=== PATIENT | female | born 1940 | race Caucasian/White ===

== ENCOUNTER 2016-07-22 11:21 | Emergency (ER) | payer MEDICARE, OTHER ==
--- NOTE | 2016-07-22 12:21 | EDM.PDOC ---
ED HPI GI/ABDOMINAL - General Chief Complaint: Abdominal Pain Stated Complaint: BACK AND ABD PAIN Time Seen by Provider: 07/22/16 12:08 Source: Reports: Patient, Family, RN notes reviewed History Limitations: Reports: No limitations - History of Present Illness INITIAL COMMENTS - FREE TEXT/NARRATIVE: 76-year-old female presents emergency department today with complaint of pain wrapping around the right side of her thorax with epigastric discomfort she states had that for about 3 days no other symptoms - Related Data Allergies/ADRs: Allergies Allergy/AdvReac Type Severity Reaction Status Date / Time amoxicillin [Amoxicillin] Allergy Hives Verified 07/22/16 11:57 ciprofloxacin AdvReac Other Verified 07/22/16 11:57 lisinopril AdvReac Nausea Verified 07/22/16 11:57 Home Meds: Home Meds Metoprolol Tartrate 50 mg PO BID 05/20/15 [History] Diltiazem [Dilacor XR] 120 mg PO BID 07/22/16 [History] Warfarin [Coumadin] 5 mg PO ASDIRECTED 07/22/16 [History] Past Medical History HEENT History: Reports: Cataract, Impaired vision Cardiovascular History: Reports: Afib, High cholesterol, Hypertension Gastrointestinal History: Reports: Pancreatitis 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: Musculoskeletal History: Reports: Arthritis Neurological History: Reports: CVA, Migraines Hematologic History: Reports: Anticoagulation therapy Oncologic (Cancer) History: Reports: Other (see below) Other Oncologic History: skin Dermatologic History: Reports: Other (see below) 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 - Infectious Disease History Infectious Disease History: Reports: C-difficile, Measles, Mumps, Shingles - Past Surgical History Cardiovascular Surgical History: Reports: Carotid endarterectomy GI Surgical History: Reports: Cholecystectomy Other GI Surgeries/Procedures: colon resection Oncologic Surgical History: Reports: Other (see below) Other Oncologic Surgeries/Procedures: resection on lip Social & Family History - Family History Family Medical History: Noncontributory Cardiac: Reports: CAD, Hypertension - Tobacco Use Smoking Status *Q: Former Smoker Years of Tobacco use: 50 Packs/Tins Daily: 0.5 Used Tobacco, but Quit: Yes Month Tobacco Last Used: 8 years ago Second Hand Smoke Exposure: No - Caffeine Use Caffeine Use: Reports: Coffee Caffeine Use Comment: occ - Alcohol Use Days Per Week of Alcohol Use: 0 - Recreational Drug Use Recreational Drug Use: No - Living Situation & Occupation Living situation: Reports: , with spouse ED ROS GENERAL - Review of Systems Review Of Systems: See Below Constitutional: Reports: no symptoms HEENT: Reports: No symptoms Respiratory: Reports: No Symptoms Cardiovascular: Reports: Chest pain GI/Abdominal: Reports: Abdominal pain. Denies: Nausea, Vomiting : Reports: no symptoms Musculoskeletal: Reports: no symptoms Skin: Reports: no symptoms ED EXAM, GI/ABD - Physical Exam Exam: See Below Text/Narrative:: General: Female, not in any distress, alert and oriented x3 HEENT: head is atraumatic normocephalic, eyes pupils equal round reactive to light, sclera clear no conjunctivitis appreciated. Ears tympanic membranes clear and hernandez landmarks and light reflex are present bilaterally canals are clear. Nose no septal deviation, nares are clear, no blood present. Mouth mucosa is moist and pink no erythema or exudate noted in soft palate, tongue is midline uvula is midline, Neck: Supple no thyromegaly no tracheal deviation. Nodes: Cervical nodes subclavicular nodes nontender no palpable lymphadenopathy noted. Lungs: clear to auscultation bilaterally with symmetrical respirations, no adventitious noise appreciated. CV: Irregularly irregular rate and rhythm S1 and S2 appreciated no murmurs rubs or gallops noted. Thorax she is tender to palpation along the right side back and flank T4 to TH region there is also an erythematous patch that encompasses a dermatome about T6 Abdomen: Soft, nontender, no palpable masses or organomegaly appreciated, no distention no guarding bowel sounds are present, . Neuro: Cranial nerves II through XII grossly intact Skin: Warm and dry, intact Extremities: No lower extremity edema appreciated. Course - Vital Signs Last Recorded V/S: Last Vital Signs Temp 96.5 F 07/22/16 11:49 Pulse 74 07/22/16 14:24 Resp 18 07/22/16 14:24 BP 163/80 H 07/22/16 14:24 Pulse Ox 95 07/22/16 14:24 - Orders/Labs/Meds Orders: Active Orders 24 hr Category Date Time Status Chest 2V [CR] Urgent Exams 07/22/16 13:02 Taken Labs: Laboratory Tests 07/22/16 07/22/16 07/22/16 Range/Units 12:19 12:25 12:25 WBC 12.0 H (4.5-11.0) K/uL RBC 5.08 (3.30-5.50) M/uL Hgb 14.6 D (12.0-15.0) g/dL Hct 43.6 (36.0-48.0) % MCV 86 (80-98) fL MCH 29 (27-31) pg MCHC 34 (32-36) % Plt Count 299 (150-400) K/uL Neut % (Auto) 78 H (36-66) % Lymph % (Auto) 13 L (24-44) % [place] % (Auto) 7 H (2-6) % Eos % (Auto) 1 L (2-4) % Baso % (Auto) 1 (0-1) % Sodium 136 L (140-148) mmol/L Potassium 4.7 (3.6-5.2) mmol/L Chloride 99 L (100-108) mmol/L Carbon Dioxide 29 (21-32) mmol/L Anion Gap 12.7 (5.0-14.0) mmol/L BUN 12 D (7-18) mg/dL Creatinine 0.7 (0.6-1.0) mg/dL Est Cr Clr Drug Dosing 48.34 mL/min Estimated GFR (MDRD) > 60 (>60) Glucose 88 (74-106) mg/dL Calcium 9.1 (8.5-10.1) mg/dL Total Bilirubin 0.4 D (0.2-1.0) mg/dL AST 19 (15-37) U/L ALT 25 (12-78) U/L Alkaline Phosphatase 99 (46-116) U/L Troponin I < 0.017 (0.000-0.056) ng/mL Total Protein 8.8 H (6.4-8.2) g/dL Albumin 3.6 (3.4-5.0) g/dL Globulin 5.2 H (2.3-3.5) g/dL Albumin/Globulin Ratio 0.7 L (1.2-2.2) Lipase 94 (73-393) U/L Meds: Medications Discontinued Medications Generic Name Dose Route Start Last Admin Trade Name Freq PRN Reason Stop Dose Admin Hydromorphone HCl 1 mg 07/22/16 13:50 04/15/17 14:21 Dilaudid IM 07/22/16 13:51 1 mg ONETIME ONE Administration Ketorolac Tromethamine 60 mg 07/22/16 13:02 07/22/16 13:11 Toradol IM 07/22/16 13:03 60 mg ONETIME ONE Administration Departure - Departure Time of Disposition: 15:04 Disposition: Home, Self-Care 01 Condition: good Clinical Impression: Chest wall pain Referrals: Stanley Hernandez MD [Primary Care Provider] - Forms: ED Department Discharge Additional Instructions: Use hydrocodone as needed for pain control, use the Flexeril as needed for muscle relaxant, Please followup with your primary care provider in 3-5 days if not better, please call return to the emergency department with worsening of symptoms. - My Orders Last 24 Hours: My Active Orders 07/22/16 13:02 Chest 2V [CR] Urgent - Assessment/Plan Last 24 Hours: My Active Orders 07/22/16 13:02 Chest 2V [CR] Urgent Plan: Assessment Acuity = acute Site and laterality = right sided rib pain chest wall pain Etiology = unclear etiology possibly related to lifting injury Manifestations = none Location of injury = home Lab values = WBC elevated at 12.0 consistent leukocytosis, sodium low 136 months hyponatremia chest x-ray I did review films myself I cannot appreciate any acute process, the official read from radiology is pending Plan She had good improvement with pain combination of Toradol and Dilaudid plan is discharge home with hydrocodone for pain control total #10 and muscle Isoflex for a followup with primary care 3-5 days Patient was in agreement with the plan all questions were answered, they were instructed to return to the emergency department or call for worsening symptoms. This note was dictated using [email or web address] voice recognition software please call with any questions.
[2016-07-22] MEDS ORDERED: Ketorolac 60 MG/2 ML SDV IM ONE (13:02)
[2016-07-22] MEDS ORDERED: HYDROmorphone 1 MG/ML Syringe IM ONE (13:50)
[2016-07-22 15:46] VITALS: BP 194/79
--- NOTE | 2016-07-24 09:28 | CR ---
Heart size within normal limits. Left lung is clear. Right lung is clear. Moderate compression defor mity of the midthoracic spine.
== END 2016-07-22 15:55 | disposition home or self-care (01) ==
LOC: JP.ED 11:21
DX: R07.89 Other chest pain (principal); I10 Essential (primary) hypertension; I48.91 Unspecified atrial fibrillation; Z79.01 Long term (current) use of anticoagulants; Z79.899 Other long term (current) drug therapy; Z90.49 Acquired absence of other specified parts of digestive tract; Z98.890 Other specified postprocedural states; Z87.891 Personal history of nicotine dependence; Z88.1 Allergy status to other antibiotic agents; Z88.8 Allergy status to other drugs, medicaments and biological substances
CPT/HCPCS: 36415; 71020; 80053; 83690; 84484; 85025; 96372; 99284; J1170; J1885

== ENCOUNTER 2017-06-27 11:26 | Inpatient (IN) | payer MEDICARE, OTHER ==
[2017-06-27] MEDS ORDERED: Sodium Chloride 0.9% 10 ML Syringe FLUSH PRN ×2 (11:58→15:53)
[2017-06-27] MEDS ORDERED: Lactated Ringers 1,000 ML IV SCH (12:00)
--- NOTE | 2017-06-27 12:02 | EDM.PDOC ---
ED HPI GENERAL MEDICAL PROBLEM - General Chief Complaint: Abdominal Pain Stated Complaint: PAIN IN UPPER STOMACH AREA Time Seen by Provider: 06/27/17 11:49 Source of Information: Reports: Patient, Family, Old Records, RN Notes Reviewed History Limitations: Reports: No Limitations - History of Present Illness INITIAL COMMENTS - FREE TEXT/NARRATIVE: 77-year-old female presents emergency department day complaint of abdominal pain epigastric region, she states it's really developed over the last 24 hours she has had nausea and vomiting no fevers no shortness of breath or chest pain with known history of atrial fibrillation and has had pancreatitis in the past she feels this is similar to past episodes Upper Abdominal Pain Score (Numeric/FACES): 4 - Related Data Allergies Allergy/AdvReac Type Severity Reaction Status Date / Time amoxicillin [Amoxicillin] Allergy Hives Verified 07/22/16 11:57 [id number] Reductase Allergy Other Verified 06/27/17 11:45 Inhibitor ciprofloxacin AdvReac Other Verified 07/22/16 11:57 lisinopril AdvReac Nausea Verified 07/22/16 11:57 Home Meds: Home Meds Metoprolol Tartrate 50 mg PO BID 05/20/15 [History] Diltiazem [Dilacor XR] 120 mg PO BID 07/22/16 [History] Warfarin [Coumadin] 5 mg PO ASDIRECTED 07/22/16 [History] *Hctz 1 tab PO DAILY 06/27/17 [History] Past Medical History HEENT History: Reports: Cataract, Impaired Vision Cardiovascular History: Reports: Afib, High Cholesterol, Hypertension Gastrointestinal History: Reports: Pancreatitis 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: Musculoskeletal History: Reports: Arthritis Neurological History: Reports: CVA, Migraines Hematologic History: Reports: Anticoagulation Therapy Oncologic (Cancer) History: Reports: Other (See Below) Other Oncologic History: skin Dermatologic History: Reports: Other (See Below) 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 - Infectious Disease History Infectious Disease History: Reports: C-Difficile, Measles, Mumps, Shingles - Past Surgical History Cardiovascular Surgical History: Reports: Carotid Endarterectomy GI Surgical History: Reports: Cholecystectomy Other GI Surgeries/Procedures: colon resection Oncologic Surgical History: Reports: Other (See Below) Social & Family History - Family History Family Medical History: Noncontributory Cardiac: Reports: CAD, Hypertension - Tobacco Use Smoking Status *Q: Unknown Ever Smoked Years of Tobacco use: 50 Packs/Tins Daily: 0.5 Used Tobacco, but Quit: Yes Month/Year Tobacco Last Used: 8 years ago Second Hand Smoke Exposure: No - Caffeine Use Caffeine Use: Reports: Coffee Caffeine Use Comment: occ - Alcohol Use Days Per Week of Alcohol Use: 0 - Recreational Drug Use Recreational Drug Use: No - Living Situation & Occupation Living situation: Reports: , with Spouse ED ROS GENERAL - Review of Systems Review Of Systems: See Below Constitutional: Denies: Fever, Chills HEENT: Reports: No Symptoms Respiratory: Reports: No Symptoms Cardiovascular: Reports: No Symptoms GI/Abdominal: Reports: Abdominal Pain, Nausea, Vomiting : Reports: No Symptoms Musculoskeletal: Reports: No Symptoms Skin: Reports: No Symptoms Neurological: Reports: No Symptoms ED EXAM, GI/ABD - Physical Exam Exam: See Below Text/Narrative:: General: Female, not in any distress, alert and oriented x3 HEENT: head is atraumatic normocephalic, eyes pupils equal round reactive to light, sclera clear no conjunctivitis appreciated. Ears tympanic membranes clear and hernandez landmarks and light reflex are present bilaterally canals are clear. Nose no septal deviation, nares are clear, no blood present. Mouth mucosa is moist and pink no erythema or exudate noted in soft palate, tongue is midline uvula is midline, dentures in place. Neck: Supple no thyromegaly no tracheal deviation. Nodes: Cervical nodes subclavicular nodes nontender no palpable lymphadenopathy noted. Lungs: clear to auscultation bilaterally with symmetrical respirations, no adventitious noise appreciated. CV: Irregularly irregular rate and rhythm S1 and S2 appreciated no murmurs rubs or gallops noted. Abdomen: Soft, generalized tenderness to palpation, no palpable masses or organomegaly appreciated, no distention positive for guarding bowel sounds are present, [scars ]. Neuro: Cranial nerves II through XII grossly intact Skin: Warm and dry, intact Extremities: No lower extremity edema appreciated, Course - Vital Signs Last Recorded V/S: Last Vital Signs Temp 97.3 F 06/27/17 11:37 Pulse 91 06/27/17 14:04 Resp 15 06/27/17 14:04 BP 108/42 L 06/27/17 14:04 Pulse Ox 93 L 06/27/17 14:04 - Orders/Labs/Meds Orders: Active Orders 24 hr Category Date Time Status EKG Documentation Completion [RC] ASDIRECTED Care 06/27/17 11:59 Active Peripheral IV Care [RC] . DIRECTED Care 06/27/17 11:58 Active Iopamidol [Isovue-300 (61%)] Med 06/27/17 12:17 Active 92 ml IV . DIRECTED PRN Lactated Ringers [Ringers, Lactated] 1,000 ml Med 06/27/17 12:00 Active IV ASDIRECTED Sodium Chloride 0.9% [Normal Saline] 71 ml Med 06/27/17 12:30 Active IV ASDIRECTED Sodium Chloride 0.9% [Saline Flush] Med 06/27/17 11:58 Active 10 ml FLUSH ASDIRECTED PRN Sodium Chloride 0.9% [Saline Flush] Med 06/27/17 12:30 Active 10 ml FLUSH ONETIME Peripheral IV Insertion Adult [OM.PC] Urgent Oth 06/27/17 11:58 Ordered EKG 12 Lead [EK] Stat Ther 06/27/17 11:59 Ordered Medication Orders Lactated Ringer's (Ringers, Lactated) 1,000 mls @ 500 mls/hr IV ASDIRECTED [facility] Last Admin: 06/27/17 12:27 Dose: 500 mls/hr Sodium Chloride (Normal Saline) 71 mls @ 3 mls/sec IV ASDIRECTED [facility] Last Admin: 06/27/17 13:01 Dose: 3 mls/sec Iopamidol (Isovue-300 (61%)) 92 ml IV . DIRECTED PRN PRN Reason: RADIOLOGY EXAM Stop: 06/28/17 12:18 Last Admin: 06/27/17 13:01 Dose: 92 ml Sodium Chloride (Saline Flush) 10 ml FLUSH ASDIRECTED PRN PRN Reason: Keep Vein Open Sodium Chloride (Saline Flush) 10 ml FLUSH ONETIME [facility] Labs: Laboratory Tests 06/27/17 06/27/17 06/27/17 Range/Units 12:11 12:11 12:11 WBC 15.1 H (4.5-11.0) K/uL RBC 5.36 (3.30-5.50) M/uL Hgb 16.3 H (12.0-15.0) g/dL Hct 47.4 (36.0-48.0) % MCV 88 (80-98) fL MCH 30 (27-31) pg MCHC 34 (32-36) % Plt Count 256 (150-400) K/uL Neut % (Auto) 83 H (36-66) % Lymph % (Auto) 10 L (24-44) % [place] % (Auto) 7 H (2-6) % Eos % (Auto) 1 L (2-4) % Baso % (Auto) 0 (0-1) % PT 22.9 H (9.5-12.0) sec INR 2.08 H (0.80-1.20) Sodium 139 L (140-148) mmol/L Potassium 3.5 L (3.6-5.2) mmol/L Chloride 99 L (100-108) mmol/L Carbon Dioxide 29 (21-32) mmol/L Anion Gap 14.5 H (5.0-14.0) mmol/L BUN 22 H D (7-18) mg/dL Creatinine 0.8 (0.6-1.0) mg/dL Est Cr Clr Drug Dosing 41.63 mL/min Estimated GFR (MDRD) > 60 (>60) Glucose 117 H (74-106) mg/dL Lactic Acid (0.4-2.0) mmol/L Calcium 9.6 (8.5-10.1) mg/dL Total Bilirubin 0.8 D (0.2-1.0) mg/dL AST 25 (15-37) U/L ALT 25 (12-78) U/L Alkaline Phosphatase 82 (46-116) U/L Troponin I < 0.017 (0.000-0.056) ng/mL Total Protein 7.8 (6.4-8.2) g/dL Albumin 3.6 (3.4-5.0) g/dL Globulin 4.2 H (2.3-3.5) g/dL Albumin/Globulin Ratio 0.9 L (1.2-2.2) Lipase 72 L (73-393) U/L Urine Color Urine Appearance Urine pH (4.5-8.0) Ur Specific [place] (1.008-1.030) Urine Protein (NEGATIVE) mg/dL Urine Glucose (UA) (NEGATIVE) mg/dL Urine Ketones (NEGATIVE) mg/dL Urine Occult Blood (NEGATIVE) Urine Nitrite (NEGATIVE) Urine Bilirubin (NEGATIVE) Urine Urobilinogen (NORMAL) mg/dL Ur Leukocyte Esterase (NEGATIVE) Urine RBC (0-5) Urine WBC (0-5) Ur Epithelial Cells Amorphous Sediment Urine Bacteria Urine Mucus 06/27/17 06/27/17 Range/Units 12:11 12:13 WBC (4.5-11.0) K/uL RBC (3.30-5.50) M/uL Hgb (12.0-15.0) g/dL Hct (36.0-48.0) % MCV (80-98) fL MCH (27-31) pg MCHC (32-36) % Plt Count (150-400) K/uL Neut % (Auto) (36-66) % Lymph % (Auto) (24-44) % [place] % (Auto) (2-6) % Eos % (Auto) (2-4) % Baso % (Auto) (0-1) % PT (9.5-12.0) sec INR (0.80-1.20) Sodium (140-148) mmol/L Potassium (3.6-5.2) mmol/L Chloride (100-108) mmol/L Carbon Dioxide (21-32) mmol/L Anion Gap (5.0-14.0) mmol/L BUN (7-18) mg/dL Creatinine (0.6-1.0) mg/dL Est Cr Clr Drug Dosing mL/min Estimated GFR (MDRD) (>60) Glucose (74-106) mg/dL Lactic Acid 1.5 (0.4-2.0) mmol/L Calcium (8.5-10.1) mg/dL Total Bilirubin (0.2-1.0) mg/dL AST (15-37) U/L ALT (12-78) U/L Alkaline Phosphatase (46-116) U/L Troponin I (0.000-0.056) ng/mL Total Protein (6.4-8.2) g/dL Albumin (3.4-5.0) g/dL Globulin (2.3-3.5) g/dL Albumin/Globulin Ratio (1.2-2.2) Lipase (73-393) U/L Urine Color [place] Urine Appearance Clear Urine pH 6.0 (4.5-8.0) Ur Specific [place] 1.020 (1.008-1.030) Urine Protein Negative (NEGATIVE) mg/dL Urine Glucose (UA) Normal (NEGATIVE) mg/dL Urine Ketones Negative (NEGATIVE) mg/dL Urine Occult Blood Moderate (NEGATIVE) Urine Nitrite Negative (NEGATIVE) Urine Bilirubin Small (NEGATIVE) Urine Urobilinogen Normal (NORMAL) mg/dL Ur Leukocyte Esterase Negative (NEGATIVE) Urine RBC 10-20 H (0-5) Urine WBC Not seen (0-5) Ur Epithelial Cells Many Amorphous Sediment Many Urine Bacteria Not seen Urine Mucus Not seen Meds: Medications Generic Name Dose Route Start Last Admin Trade Name Freq PRN Reason Stop Dose Admin Lactated Ringer's 1,000 mls @ 500 mls/hr 06/27/17 12:00 06/27/17 12:27 Ringers, Lactated IV 500 mls/hr ASDIRECTED HECTOR Administration Sodium Chloride 71 mls @ 3 mls/sec 06/27/17 12:30 06/27/17 13:01 Normal Saline IV 3 mls/sec ASDIRECTED HECTOR Administration Iopamidol 92 ml 06/27/17 12:17 06/27/17 13:01 Isovue-300 (61%) IV 06/28/17 12:18 92 ml . DIRECTED PRN Administration RADIOLOGY EXAM Sodium Chloride 10 ml 06/27/17 11:58 Saline Flush FLUSH ASDIRECTED PRN Keep Vein Open Sodium Chloride 10 ml 06/27/17 12:30 Saline Flush FLUSH ONETIME HECTOR Discontinued Medications Generic Name Dose Route Start Last Admin Trade Name Freq PRN Reason Stop Dose Admin Hydromorphone HCl 0.5 mg 06/27/17 12:18 06/27/17 12:28 Dilaudid IVPUSH 06/27/17 12:19 0.5 mg ONETIME ONE Administration Ondansetron HCl 4 mg 06/27/17 12:18 06/27/17 12:27 Zofran IVPUSH 06/27/17 12:19 4 mg ONETIME ONE Administration Departure - Departure Time of Disposition: 14:08 Disposition: Admitted As Inpatient 65 Condition: Fair Clinical Impression: Small bowel obstruction - Discharge Information Referrals: Stanley Hernandez MD [Primary Care Provider] - Forms: ED Department Discharge - My Orders Last 24 Hours: My Active Orders 06/27/17 11:58 Peripheral IV Care [RC] . DIRECTED Sodium Chloride 0.9% [Saline Flush] 10 ml FLUSH ASDIRECTED PRN Peripheral IV Insertion Adult [OM.PC] Urgent 06/27/17 11:59 EKG Documentation Completion [RC] ASDIRECTED EKG 12 Lead [EK] Stat 06/27/17 12:00 Lactated Ringers [Ringers, Lactated] 1,000 ml IV ASDIRECTED 06/27/17 12:17 Iopamidol [Isovue-300 (61%)] 92 ml IV . DIRECTED PRN 06/27/17 12:30 Sodium Chloride 0.9% [Normal Saline] 71 ml IV ASDIRECTED Sodium Chloride 0.9% [Saline Flush] 10 ml FLUSH ONETIME - Assessment/Plan Last 24 Hours: My Active Orders 06/27/17 11:58 Peripheral IV Care [RC] . DIRECTED Sodium Chloride 0.9% [Saline Flush] 10 ml FLUSH ASDIRECTED PRN Peripheral IV Insertion Adult [OM.PC] Urgent 06/27/17 11:59 EKG Documentation Completion [RC] ASDIRECTED EKG 12 Lead [EK] Stat 06/27/17 12:00 Lactated Ringers [Ringers, Lactated] 1,000 ml IV ASDIRECTED 06/27/17 12:17 Iopamidol [Isovue-300 (61%)] 92 ml IV . DIRECTED PRN 06/27/17 12:30 Sodium Chloride 0.9% [Normal Saline] 71 ml IV ASDIRECTED Sodium Chloride 0.9% [Saline Flush] 10 ml FLUSH ONETIME Assessment:: Assessment Acuity = acute Site and laterality = small bowel obstruction complicated patient with known history of atrial fibrillation on anticoagulation therapy, history of cholecystectomy and bowel resection secondary to perforation Etiology = unknown etiology Manifestations = nausea vomiting and abdominal pain Location of injury = Home Lab values = WBC elevated at 15.1 consistent leukocytosis INR therapeutic at 2.08 lactic acid normal at 1.5 lipase normal at 72 urinalysis reveals 10-20 rbc' s consists with a hematuria CT scan describes the lesion above mid to distal jejunum Plan Called and discussed case with hospitalist project control manager he agreed to come and evaluate the patient emergency department for admission This note was dictated using [employer] voice recognition software please call with any questions on syntax or moe.
[2017-06-27] MEDS ORDERED: Iopamidol 612 MG/ML 100 ML Bottle IV PRN (12:17)
[2017-06-27] MEDS ORDERED: HYDROmorphone 0.5 MG/0.5 ML Syringe IVPUSH ONE (12:18)
[2017-06-27] MEDS ORDERED: Ondansetron 4 MG/2 ML SDV IVPUSH ONE (12:18)
[2017-06-27] MEDS ORDERED: Sodium Chloride 0.9% 71 ML IV SCH (12:30)
[2017-06-27] MEDS ORDERED: Sodium Chloride 0.9% 10 ML Syringe FLUSH SCH (12:30)
--- NOTE | 2017-06-27 13:41 | CT ---
Abdomen pelvis CT. History: Generalized abdominal pain. Technique: IV contrast was administered followed by axial imaging from the lung bases extending throu gh the abdomen and pelvis. Coronal images were reconstructed. Total DLP: 730 Findings: Limited evaluation of lower lung burks demonstrates no acute findings. There is mild distention of the stomach with fluid. There is distention of the proximal and mid small bowel. Distal small bowel is decompressed as is the colon. A transition point is not noted. There is trace fluid in the pelvis. There is no free air. There is a fat-containing umbilical hernia. The jordyn endix is normal. The patient has had a prior cholecystectomy. The pancreas is unremarkable. The spleen is normal in si ze. The adrenal glands are symmetric. Kidneys demonstrate symmetric excretion of contrast. Impression: 1. Findings consistent with a small bowel obstruction likely involving the mid or distal jejunum. 2. Mild cul-de-sac fluid. 3. Prior cholecystectomy. 4. Fat-containing umbilical hernia.
[2017-06-27] MEDS ORDERED: Ondansetron 4 MG/2 ML SDV IV PRN (15:53)
--- NOTE | 2017-06-27 15:59 | PCM.HP ---
H&P History of Present Illness - General Date of Service: 06/27/17 Admit Problem/Dx: Admission Diagnosis/Problem Admission Diagnosis/Problem Small bowel obstruction Source of Information: Patient, Family, Old Records, Provider, RN Notes Reviewed History Limitations: Reports: No Limitations - History of Present Illness Initial Comments - Free Text/Narative: Ms. Culver is a 77-year-old woman who is admitted through the emergency department with nausea, vomiting, dehydration, and abdominal pain secondary to a mechanical small bowel obstruction. She felt well until last night when she noted relatively abrupt onset of abdominal pain associated with nausea and vomiting, symptoms have persisted and progressed since then. She presented to the emergency department today for further evaluation and management. Heart rate was elevated and she was found to have an elevation in white blood cell count. CT scan of the abdomen documents a mechanical small bowel obstruction. NG tube has been placed and she already feels somewhat improved. She has had previous abdominal surgery including: Repair from a colonoscopy perforation as well as cholecystectomy. Heart rate has improved with IV fluids but she does have a known history of underlying atrial fibrillation and is on long-term oral anticoagulation with warfarin Upper Abdominal Pain Score (Numeric/FACES): 4 - Related Data Allergies/Adverse Reactions: Allergies Allergy/AdvReac Type Severity Reaction Status Date / Time amoxicillin [Amoxicillin] Allergy Hives Verified 07/22/16 11:57 Opgxvpy-Aes-Oyi Reductase Allergy Other Verified 06/27/17 11:45 Inhibitor ciprofloxacin AdvReac Other Verified 07/22/16 11:57 lisinopril AdvReac Nausea Verified 07/22/16 11:57 Home Medications: Home Meds Metoprolol Tartrate 50 mg PO BID 05/20/15 [History] Diltiazem [Dilacor XR] 120 mg PO BID 07/22/16 [History] Warfarin [Coumadin] 5 mg PO ASDIRECTED 07/22/16 [History] *Hctz 1 tab PO DAILY 06/27/17 [History] Past Medical History HEENT History: Reports: Cataract, Impaired Vision Cardiovascular History: Reports: Afib, High Cholesterol, Hypertension Gastrointestinal History: Reports: Pancreatitis [employer] History: Reports: Musculoskeletal History: Reports: Arthritis Neurological History: Reports: CVA, Migraines Hematologic History: Reports: Anticoagulation Therapy Oncologic (Cancer) History: Reports: Other (See Below) Other Oncologic History: skin Dermatologic History: Reports: Other (See Below) 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 - Infectious Disease History Infectious Disease History: Reports: C-Difficile, Measles, Mumps, Shingles - Past Surgical History Cardiovascular Surgical History: Reports: Carotid Endarterectomy GI Surgical History: Reports: Cholecystectomy Other GI Surgeries/Procedures: colon resection Oncologic Surgical History: Reports: Other (See Below) Social & Family History - Family History Family Medical History: Noncontributory Cardiac: Reports: CAD, Hypertension - Tobacco Use Smoking Status *Q: Unknown Ever Smoked Years of Tobacco use: 50 Packs/Tins Daily: 0.5 Used Tobacco, but Quit: Yes Month/Year Tobacco Last Used: 8 years ago Second Hand Smoke Exposure: No - Caffeine Use Caffeine Use: Reports: Coffee Caffeine Use Comment: occ - Alcohol Use Days Per Week of Alcohol Use: 0 - Recreational Drug Use Recreational Drug Use: No - Living Situation & Occupation Living situation: Reports: , with Spouse H&P Review of Systems - Review of Systems: Review Of Systems: See Below General: Reports: Diaphoresis, Decreased Appetite. Denies: Fever, Chills, Weakness HEENT: Reports: No Symptoms Pulmonary: Reports: No Symptoms Cardiovascular: Reports: No Symptoms Gastrointestinal: Reports: Abdominal Pain, Distension, Nausea, Vomiting. Denies : Black Stool, Bloody Stool, Constipation, Diarrhea, Difficulty Swallowing Genitourinary: Reports: No Symptoms Musculoskeletal: Reports: No Symptoms Skin: Reports: No Symptoms Psychiatric: Reports: No Symptoms Neurological: Reports: No Symptoms Hematologic/Lymphatic: Reports: No Symptoms Immunologic: Reports: No Symptoms Exam - Exam Exam: See Below - Vital Signs Vital Signs: Last Vital Signs Temp 97.5 F 06/27/17 15:40 Pulse 15 L 06/27/17 15:40 Resp 14 06/27/17 15:40 BP 110/75 06/27/17 15:40 Pulse Ox 93 L 06/27/17 15:40 Weight: 135 lb - Exam Quality Assessment: DVT Prophylaxis General: Alert, Oriented, Cooperative, Moderate Distress HEENT: Conjunctiva Clear, Hearing Intact, Normal Nasal Septum, Posterior Pharynx Clear, Pupils Equal. No: Mucosa Moist & [place] Neck: Supple, Trachea Midline, +2 Carotid Pulse wo Bruit Lungs: Clear to Auscultation, Normal Respiratory Effort Cardiovascular: Regular Rate, Normal S1, Normal S2, Irregular Rhythm. No: Systolic Murmur, Diastolic Murmur GI/Abdominal Exam: Soft, No Organomegaly, Distended, Tender, Abnormal Bowel Sounds. No: Guarding, Rigid, Rebound Back Exam: Normal Inspection, Full Range of Motion Extremities: Non-Tender, No Pedal Edema Skin: Warm, Dry, Intact Neurological: Cranial Nerves Intact, Strength Equal Bilateral, Normal Speech, Normal Tone, Sensation Intact. No: Focal Deficit Neuro Extensive - Mental Status: Alert, Oriented x3, Normal Mood/Affect, Normal Cognition, Memory Intact - Patient Data Result Diagrams: 06/27/17 12:11 06/27/17 12:11 *Q Meaningful Use (ADM) - VTE *Q VTE Criteria *Q: VTE Pharmacological Contraindications *Q: High INR Value - VTE Risk Assess *Q Each Risk Factor Represents 1 Point: Obesity ( BMI > 25 kg/m2) Total Score 1 Point Risk Factors: 1 Each Risk Factor Represents 2 Points: None Total Score 2 Point Risk Factors: 0 Each Risk Factor Represents 3 Points: Age 75 Years or Greater Total Score 3 Point Risk Factors: 3 Each Risk Factor Represents 5 Points: None Total Score 5 Point Risk Factors: 0 Venous Thromboembolism Risk Factor Score *Q: 4 - Stroke *Q Stroke Criteria *Q: - AMI *Q AMI Criteria *Q: Problem List Initiated/Reviewed/Updated: Yes Orders Last 24hrs: Active Orders 24 hr Category Date Time Status Resuscitation Status Routine Resus Stat 06/27/17 15:28 Ordered Medication Orders Lactated Ringer's (Ringers, Lactated) 1,000 mls @ 500 mls/hr IV ASDIRECTED [facility] Last Admin: 06/27/17 12:27 Dose: 500 mls/hr Sodium Chloride (Normal Saline) 71 mls @ 3 mls/sec IV ASDIRECTED [facility] Last Admin: 06/27/17 13:01 Dose: 3 mls/sec Iopamidol (Isovue-300 (61%)) 92 ml IV . DIRECTED PRN PRN Reason: RADIOLOGY EXAM Stop: 06/28/17 12:18 Last Admin: 06/27/17 13:01 Dose: 92 ml Sodium Chloride (Saline Flush) 10 ml FLUSH ASDIRECTED PRN PRN Reason: Keep Vein Open Sodium Chloride (Saline Flush) 10 ml FLUSH ONETIME [facility] Assessment/Plan Comment:: ASSESSMENT AND PLAN MECHANICAL SMALL BOWEL OBSTRUCTION-history of previous surgeries as documented above. Onset of symptoms approximately 18 hours ago, unrelenting. CT scan documents mechanical small bowel obstruction -IV fluids for hydration -Nothing by mouth -Anti-emetic and pain medication as needed -NG tube to low intermittent suction -Follow-up abdominal flat plate and upright x-ray in a.m. ATRIAL FIBRILLATION-rate elevated on admission, now under better control following hydration. On long-term oral anticoagulation with warfarin -Hold warfarin -Consider subcutaneous Lovenox when INR drops below therapeutic range -Hold oral diltiazem and metoprolol -Metoprolol 2.5 mg IV every 4 hours -Recheck INR in a.m. MAINTENANCE ISSUES -DVT prophylaxis; SCUDs -GI prophylaxis; Protonix 40 mg IV every 24 hours -Littlejohn catheter; not indicated -Nutrition; nothing by mouth -Nicotine dependence; not required CODE STATUS-full code ADMISSION STATUS-patient will be admitted to inpatient status, expect at least a 2 night hospital stay for evaluation and management of problems as outlined above. At the time of this admission I do not reasonably expected evaluation and management of this problem will require more than a 96 hour hospital stay. DISPOSITION-anticipate discharge to home after the hospital stay. PRIMARY CARE PROVIDER- Dr. Hernandez
[2017-06-27] MEDS: HYDROmorphone 0.5 MG/0.5 ML Syringe IVPUSH PRN (16:26)
[2017-06-27] MEDS: Lactated Ringers 1,000 ML IV SCH (16:38)
[2017-06-27] MEDS: Metoprolol Tartrate 5 MG/5 ML SDV IVPUSH SCH ×2 (16:55→20:02)
[2017-06-27] MEDS: Pantoprazole 40 MG Vial IVPUSH SCH (17:51)
[2017-06-28] MEDS: Metoprolol Tartrate 5 MG/5 ML SDV IVPUSH SCH ×3 (00:25→07:18)
[2017-06-28] MEDS: Lactated Ringers 1,000 ML IV SCH (00:27)
[2017-06-28] MEDS: HYDROmorphone 0.5 MG/0.5 ML Syringe IVPUSH PRN (03:41)
--- NOTE | 2017-06-28 09:40 | CR ---
Abdomen 2V AP Upright Decub INDICATION: Follow-up SBO Correlation is made to a CT exam from the previous day. FINDINGS: There has been interval placement of a nasogastric tube which is positioned within the stom ach. There is a significant interval decrease in caliber of the dilated portions of small bowel seen on the CT exam. There is no free air. Impression: 1. Normalization of bowel gas pattern following placement of NG tube.
[2017-06-28] MEDS: Potassium Chloride 20 MEQ, Lidocaine 1% 2 ML in Sodium Chloride 0.9% 100 ML IV SCH ×2 (10:02→12:08)
[2017-06-28] MEDS: Enoxaparin 60 MG/0.6 ML Syringe SUBCUT SCH ×2 (10:03→20:41)
[2017-06-28] MEDS ORDERED: Metoprolol Tartrate 50 MG Tab PO SCH (10:30)
[2017-06-28] MEDS ORDERED: Diltiazem 120 MG Cap.CD PO SCH (10:30)
--- NOTE | 2017-06-28 10:37 | PCM.PN ---
- General Info Date of Service: 06/28/17 Subjective Update: Ms. Culver has improved since admission, abdominal pain has resolved, she has passed gas and has had several small bowel movements. Abdominal flat plate and upright x-ray obtained this morning shows resolution of bowel obstruction. Vital signs have been stable and she has remained afebrile. Functional Status: Reports: Ambulating, Urinating - Review of Systems General: Denies: Fever, Chills Pulmonary: Reports: No Symptoms Cardiovascular: Reports: No Symptoms Gastrointestinal: Denies: Abdominal Pain, Diarrhea, Difficulty Swallowing, Nausea, Vomiting - Patient Data Vitals - Most Recent: Last Vital Signs Temp 98.6 F 06/28/17 07:12 Pulse 86 06/28/17 09:12 Resp 18 06/28/17 09:12 BP 120/62 06/28/17 09:12 Pulse Ox 97 06/28/17 09:12 Weight - Most Recent: 136 lb 3.19 oz I&O - Last 24 Hours: Intake & Output 06/27/17 06/28/17 06/28/17 22:59 06:59 14:59 Intake Total 1530 112 Output Total 300 250 200 Balance -300 1280 -88 Lab Results Last 24 Hours: Laboratory Results - last 24 hr 06/28/17 06/28/17 06/28/17 Range/Units 05:00 05:00 05:00 WBC 9.0 (4.5-11.0) K/uL RBC 4.76 (3.30-5.50) M/uL Hgb 14.4 (12.0-15.0) g/dL Hct 43.2 (36.0-48.0) % MCV 91 (80-98) fL MCH 30 (27-31) pg MCHC 33 (32-36) % Plt Count 188 (150-400) K/uL Neut % (Auto) 70 H (36-66) % Lymph % (Auto) 20 L (24-44) % [place] % (Auto) 8 H (2-6) % Eos % (Auto) 1 L (2-4) % Baso % (Auto) 1 (0-1) % PT 17.7 H (9.5-12.0) sec INR 1.62 H (0.80-1.20) Sodium 143 (140-148) mmol/L Potassium 3.3 L (3.6-5.2) mmol/L Chloride 103 (100-108) mmol/L Carbon Dioxide 29 (21-32) mmol/L Anion Gap 14.3 H (5.0-14.0) mmol/L BUN 17 (7-18) mg/dL Creatinine 0.7 (0.6-1.0) mg/dL Est Cr Clr Drug Dosing 47.58 mL/min Estimated GFR (MDRD) > 60 (>60) Glucose 88 (74-106) mg/dL Calcium 8.4 L (8.5-10.1) mg/dL Med Orders - Current: Current Medications Enoxaparin Sodium (Lovenox) 60 mg SUBCUT Q12H [facility] Last Admin: 06/28/17 10:03 Dose: 60 mg Hydromorphone HCl (Dilaudid) 0.25 mg IVPUSH Q2H PRN PRN Reason: Pain Last Admin: 06/28/17 03:41 Dose: 0.25 mg Potassium Chloride 20 meq/Lidocaine HCl 2 ml/ Sodium Chloride 112 mls @ 56 mls/ hr IV Q2H [facility] Stop: 06/28/17 13:59 Last Admin: 06/28/17 10:02 Dose: 56 mls/hr Metoprolol Tartrate (Lopressor) 50 mg PO BID [facility] Non-Formulary Medication (Diltiazem [Dilacor Xr]) 120 mg PO BID [facility] Ondansetron HCl (Zofran) 4 mg IV Q4H PRN PRN Reason: Nausea/Vomiting Pantoprazole Sodium (Protonix Iv) 40 mg IVPUSH Q24H [facility] Last Admin: 06/27/17 17:51 Dose: 40 mg Sodium Chloride (Saline Flush) 10 ml FLUSH ASDIRECTED PRN PRN Reason: Keep Vein Open Warfarin Sodium (Coumadin) 5 mg PO ASDIRECTED [facility] Discontinued Medications Hydromorphone HCl (Dilaudid) 0.5 mg IVPUSH ONETIME ONE Stop: 06/27/17 12:19 Last Admin: 06/27/17 12:28 Dose: 0.5 mg Lactated Ringer's (Ringers, Lactated) 1,000 mls @ 500 mls/hr IV ASDIRECTED [facility] Last Admin: 06/27/17 12:27 Dose: 500 mls/hr Sodium Chloride (Normal Saline) 71 mls @ 3 mls/sec IV ASDIRECTED [facility] Last Admin: 06/27/17 13:01 Dose: 3 mls/sec Lactated Ringer's (Ringers, Lactated) 1,000 mls @ 125 mls/hr IV ASDIRECTED [facility] Last Admin: 06/28/17 00:27 Dose: 125 mls/hr Iopamidol (Isovue-300 (61%)) 92 ml IV . DIRECTED PRN PRN Reason: RADIOLOGY EXAM Stop: 06/28/17 12:18 Last Admin: 06/27/17 13:01 Dose: 92 ml Metoprolol Tartrate (Lopressor) 2.5 mg IVPUSH Q4H [facility] Last Admin: 06/28/17 07:18 Dose: 2.5 mg Ondansetron HCl (Zofran) 4 mg IVPUSH ONETIME ONE Stop: 06/27/17 12:19 Last Admin: 06/27/17 12:27 Dose: 4 mg Sodium Chloride (Saline Flush) 10 ml FLUSH ASDIRECTED PRN PRN Reason: Keep Vein Open Sodium Chloride (Saline Flush) 10 ml FLUSH ONETIME [facility] - Exam Quality Assessment: DVT Prophylaxis General: Alert, Oriented, Cooperative, No Acute Distress Lungs: Clear to Auscultation, Normal Respiratory Effort Cardiovascular: Regular Rate, Regular Rhythm, No Murmurs GI/Abdominal Exam: Soft, Non-Tender, No Organomegaly, No Distention Extremities: Non-Tender, No Pedal Edema Skin: Warm, Dry, Intact - Problem List Review Problem List Initiated/Reviewed/Updated: Yes - My Orders Last 24 Hours: My Active Orders 06/27/17 15:28 Resuscitation Status Routine 06/27/17 15:53 Patient Status [ADT] Routine Ambulate [RC] QID Height and Weight [RC] 0500 Intake and Output [RC] QSHIFT Notify Provider Vital Signs [RC] ASDIRECTED Oxygen Therapy [RC] PRN Peripheral IV Care [RC] . DIRECTED Up With Assistance [RC] ASDIRECTED Up to Chair [RC] QID VTE/DVT Education [RC] Per Unit Routine Vital Signs [RC] Q4H HYDROmorphone [Dilaudid] 0.25 mg IVPUSH Q2H PRN Ondansetron [Zofran] 4 mg IV Q4H PRN Sodium Chloride 0.9% [Saline Flush] 10 ml FLUSH ASDIRECTED PRN Peripheral IV Insertion Adult [OM.PC] Routine Sequential Compression Device [OM.PC] Per Unit Routine 06/27/17 17:00 Pantoprazole [ProTONIX IV] 40 mg IVPUSH Q24H 06/28/17 09:00 Enoxaparin [Lovenox] 60 mg SUBCUT Q12H 06/28/17 10:00 Potassium Chloride 20 meq Lidocaine 1% [Xylocaine 1%] 2 ml Sodium Chloride 0.9 % [Normal Saline] 100 ml IV Q2H 06/28/17 10:30 Diltiazem [Dilacor XR] 120 mg PO BID Metoprolol Tartrate [Lopressor] 50 mg PO BID Warfarin [Coumadin] 5 mg PO ASDIRECTED 06/28/17 10:31 Cardiac Monitoring Discontinue [RC] Click to Edit Nasogastric Orogastric Tube Removal [OM.PC] Urgent 06/28/17 10:33 Convert IV to Saline Lock [OM.PC] Routine 06/28/17 Breakfast Clear Liquid Diet [DIET] 06/29/17 05:00 BASIC METABOLIC PANEL,BMP [CHEM] Timed INR,PT,PROTHROMBIN TIME [COAG] Timed - Plan Plan:: ASSESSMENT AND PLAN MECHANICAL SMALL BOWEL OBSTRUCTION-history of previous surgeries as documented above. Marked improvement since admission with no further nausea vomiting or abdominal pain. She has been passing gas and has had several small bowel movements. Abdominal x-ray from this morning shows resolution of obstruction -Saline lock IV -Clear liquid diet, advanced to soft low residue diet as tolerated -Anti-emetic and pain medication as needed -Remove NG tube -Follow-up abdominal flat plate and upright x-ray in a.m. ATRIAL FIBRILLATION-rate elevated on admission, now under better control following hydration. On long-term oral anticoagulation with warfarin -Resume warfarin -INR in a.m. -Lovenox 60 mg subcutaneous every 12 hours -Resume oral diltiazem and metoprolol -Discontinue Metoprolol 2.5 mg IV every 4 hours MAINTENANCE ISSUES -DVT prophylaxis; SCUDs -GI prophylaxis; Protonix 40 mg IV every 24 hours -Littlejohn catheter; not indicated -Nutrition; nothing by mouth -Nicotine dependence; not required CODE STATUS-full code ADMISSION STATUS-patient will be admitted to inpatient status, expect at least a 2 night hospital stay for evaluation and management of problems as outlined above. At the time of this admission I do not reasonably expected evaluation and management of this problem will require more than a 96 hour hospital stay. DISPOSITION-anticipate discharge to home after the hospital stay. PRIMARY CARE PROVIDER- Dr. Hernandez
[2017-06-28] MEDS: Metoprolol Tartrate 50 MG Tab*POM PO SCH ×2 (12:04→20:40)
[2017-06-28] MEDS: DILTIAZEM 120 MG PO SCH ×2 (12:05→20:40)
[2017-06-28] MEDS ORDERED: WARFARIN 2.5 MG PO ONE (16:00)
[2017-06-28] MEDS: Pantoprazole 40 MG Vial IVPUSH SCH (16:26)
[2017-06-28] MEDS: Pantoprazole 40 MG Tab.CR PO SCH (17:28)
[2017-06-29 07:48] VITALS: BP 167/68
[2017-06-29] MEDS: Pantoprazole 40 MG Tab.CR PO SCH (07:49)
[2017-06-29] MEDS: Enoxaparin 60 MG/0.6 ML Syringe SUBCUT SCH (08:19)
[2017-06-29] MEDS: DILTIAZEM 120 MG PO SCH (08:20)
[2017-06-29] MEDS: Metoprolol Tartrate 50 MG Tab*POM PO SCH (08:20)
--- NOTE | 2017-06-29 09:00 | CR ---
Abdomen 2V AP Upright Decub FINDINGS: There has been interval removal of the nasogastric tube. The bowel gas pattern is unremarka ble. There is no bowel distention. There are no pathologic air-fluid levels. No free air is seen. Impression: 1. Interval removal of nasogastric tube. There are no findings of recurrent small bowel obstruction a t this time.
--- NOTE | 2017-06-29 10:29 | PCM.DCSUM1 ---
Discharge Summary - Hospital Course Brief History: Ms. Culver is a 77-year-old woman admitted through the emergency department with abdominal pain, nausea, and vomiting secondary to mechanical small bowel obstruction. - Discharge Data Discharge Date: 06/29/17 Discharge Disposition: Home, Self-Care 01 Condition: Fair - Discharge Diagnosis/Problem(s) (1) Dehydration SNOMED Code(s): 98004802 ICD Code: E86.0 - DEHYDRATION Status: Acute Current Visit: Yes (2) Nausea & vomiting SNOMED Code(s): 11023203 ICD Code: R11.2 - NAUSEA WITH VOMITING, UNSPECIFIED Status: Acute Current Visit: Yes (3) Small bowel obstruction SNOMED Code(s): 188206677 ICD Code: K56.609 - UNSP INTESTNL OBST, UNSP TO PARTIAL VERSUS COMPLETE OBST Status: Acute Current Visit: Yes (4) Abdominal pain SNOMED Code(s): 19601737 ICD Code: R10.9 - UNSPECIFIED ABDOMINAL PAIN Status: Acute Current Visit : Yes (5) Afib, Atrial fibrillation SNOMED Code(s): 12132342 ICD Code: I48.91 - UNSPECIFIED ATRIAL FIBRILLATION Status: Chronic Current Visit: No (6) Chronic anticoagulation SNOMED Code(s): 786803425 ICD Code: Z79.01 - LONG-TERM (CURRENT) USE OF ANTICOAGULANTS Status: Chronic Current Visit: No - Patient Summary/Data Consults: Consultations 06/29/17 08:00 Consult to Dietary [Consult to [employer]] [CONS] Routine Comment: Physician Instructions: Quantity: Reason for Consult: gi soft Mechanical low residual diet instruction Hospital Course: Ms. Culver is a 77-year-old woman who was admitted through the emergency department with nausea, vomiting, dehydration, and abdominal pain secondary to a mechanical small bowel obstruction. She felt well until the evening prior to admission when she noted relatively abrupt onset of abdominal pain associated with nausea and vomiting, symptoms persisted and progressed. She presented to the emergency department for further evaluation and management. Heart rate was elevated and she was found to have an elevation in white blood cell count. CT scan of the abdomen documented a mechanical small bowel obstruction. NG tube was placed and she already felt somewhat improved. She has had previous abdominal surgery including: Repair from a colonoscopy perforation as well as cholecystectomy. Heart rate improved with IV fluids but she does have a known history of underlying atrial fibrillation and is on long-term oral anticoagulation with warfarin. On admission she was given IV fluids for hydration and the NG tube was placed to low intermittent suction. By the following morning abdominal flat plate and upright x-ray showed resolution of the obstructive pattern. She was feeling significantly improved and had been passing gas as well as several small bowel movements. The bowel obstruction was felt to have resolved, NG tube was removed , and she was started on a clear liquid diet. Later in the day diet was advanced to soft low residue which she continued to tolerate up until the time of discharge. Abdominal flat plate and upright x-ray in the morning of discharge showed no recurrence of the bowel obstruction. She is encouraged to continue to follow a soft low residue diet, activity will be as tolerated. Warfarin therapy was held during hospitalization, but was resumed on the day prior to discharge. On the day of discharge INR remains subtherapeutic. She is encouraged to have a follow-up INR obtained on July 02. Follow-up appointment will be scheduled with her primary care provider within one week. - Patient Instructions Diet: GI Soft/Low Residue/Low Fiber Activity: As Tolerated Other/Special Instructions: Please schedule follow-up appointment with primary care provider within one week. Please schedule INR in the Coumadin clinic for July 02. - Discharge Plan Home Medications: Home Meds Metoprolol Tartrate 50 mg PO BID 05/20/15 [History] Diltiazem [Dilacor XR] 120 mg PO BID 07/22/16 [History] Warfarin [Coumadin] 5 mg PO ASDIRECTED 07/22/16 [History] *Hctz 1 tab PO DAILY 06/27/17 [History] Forms: ED Department Discharge Referrals: Stanley Hernandez MD [Primary Care Provider] - - Discharge Summary/Plan Comment DC Time >30 min.: No - Patient Data Vitals - Most Recent: Last Vital Signs Temp 97.9 F 06/29/17 07:47 Pulse 82 06/29/17 08:20 Resp 16 06/29/17 07:47 BP 167/68 H 06/29/17 08:20 Pulse Ox 95 06/29/17 07:47 Weight - Most Recent: 138 lb 6.4 oz I&O - Last 24 hours: Intake & Output 06/28/17 06/29/17 06/29/17 22:59 06:59 14:59 Intake Total 240 750 Output Total 500 350 Balance 240 -500 400 Lab Results - Last 24 hrs: Laboratory Results - last 24 hr 06/29/17 06/29/17 Range/Units 05:52 05:52 PT 15.6 H (9.5-12.0) sec INR 1.44 H (0.80-1.20) Sodium 140 (140-148) mmol/L Potassium 3.8 (3.6-5.2) mmol/L Chloride 104 (100-108) mmol/L Carbon Dioxide 29 (21-32) mmol/L Anion Gap 7.5 (5.0-14.0) mmol/L BUN 12 (7-18) mg/dL Creatinine 0.6 (0.6-1.0) mg/dL Est Cr Clr Drug Dosing 55.51 mL/min Estimated GFR (MDRD) > 60 (>60) Glucose 77 (74-106) mg/dL Calcium 8.2 L (8.5-10.1) mg/dL Med Orders - Current: Current Medications Enoxaparin Sodium (Lovenox) 60 mg SUBCUT Q12H [facility] Last Admin: 06/29/17 08:19 Dose: 60 mg Hydromorphone HCl (Dilaudid) 0.25 mg IVPUSH Q2H PRN PRN Reason: Pain Last Admin: 06/28/17 03:41 Dose: 0.25 mg Metoprolol Tartrate (Lopressor) 50 mg PO BID [facility] Last Admin: 06/29/17 08:20 Dose: 50 mg Diltiazem Er 120mg * (Pom*) 1 each PO BID [facility] Last Admin: 06/29/17 08:20 Dose: 1 each Ondansetron HCl (Zofran) 4 mg IV Q4H PRN PRN Reason: Nausea/Vomiting Pantoprazole Sodium (Protonix) 40 mg PO DAILY@0730 [facility] Last Admin: 06/29/17 07:49 Dose: 40 mg Sodium Chloride (Saline Flush) 10 ml FLUSH ASDIRECTED PRN PRN Reason: Keep Vein Open Warfarin Sodium (Coumadin) 3.75 mg PO Fr@1600 [facility] Warfarin Sodium (Coumadin) 2.5 mg PO SuMoTuWeThSa@1600 [facility] Discontinued Medications Diltiazem HCl (Cardizem Cd) 120 mg PO BID [facility] Hydromorphone HCl (Dilaudid) 0.5 mg IVPUSH ONETIME ONE Stop: 06/27/17 12:19 Last Admin: 06/27/17 12:28 Dose: 0.5 mg Lactated Ringer's (Ringers, Lactated) 1,000 mls @ 500 mls/hr IV ASDIRECTED [facility] Last Admin: 06/27/17 12:27 Dose: 500 mls/hr Sodium Chloride (Normal Saline) 71 mls @ 3 mls/sec IV ASDIRECTED [facility] Last Admin: 06/27/17 13:01 Dose: 3 mls/sec Lactated Ringer's (Ringers, Lactated) 1,000 mls @ 125 mls/hr IV ASDIRECTED [facility] Last Admin: 06/28/17 00:27 Dose: 125 mls/hr Potassium Chloride 20 meq/Lidocaine HCl 2 ml/ Sodium Chloride 112 mls @ 56 mls/ hr IV Q2H [facility] Stop: 06/28/17 13:59 Last Admin: 06/28/17 12:08 Dose: 56 mls/hr Iopamidol (Isovue-300 (61%)) 92 ml IV . DIRECTED PRN PRN Reason: RADIOLOGY EXAM Stop: 06/28/17 12:18 Last Admin: 06/27/17 13:01 Dose: 92 ml Metoprolol Tartrate (Lopressor) 2.5 mg IVPUSH Q4H [facility] Last Admin: 06/28/17 07:18 Dose: 2.5 mg Metoprolol Tartrate (Lopressor) 50 mg PO BID [facility] Ondansetron HCl (Zofran) 4 mg IVPUSH ONETIME ONE Stop: 06/27/17 12:19 Last Admin: 06/27/17 12:27 Dose: 4 mg Pantoprazole Sodium (Protonix Iv) 40 mg IVPUSH Q24H [facility] Last Admin: 06/28/17 16:26 Dose: 40 mg Sodium Chloride (Saline Flush) 10 ml FLUSH ASDIRECTED PRN PRN Reason: Keep Vein Open Sodium Chloride (Saline Flush) 10 ml FLUSH ONETIME [facility] Warfarin Sodium (Coumadin) 5 mg PO ONETIME ONE Stop: 06/28/17 16:01 Last Admin: 06/28/17 16:24 Dose: 5 mg - Exam GI/Abdominal Exam: Soft, Non-Tender, No Organomegaly, No Distention *Q Meaningful Use (DIS) - VTE *Q VTE Criteria *Q: VTE Pharmacological Contraindications *Q: High INR Value - Stroke *Q Stroke Criteria *Q: - AMI *Q AMI Criteria *Q:
[2017-06-29] MEDS ORDERED: WARFARIN 2.5 MG PO SCH (16:00)
[2017-06-30] MEDS ORDERED: WARFARIN 2.5 MG PO SCH (16:00)
== END 2017-06-29 11:30 | disposition home or self-care (01) | DRG 390 ==
LOC: JP.ED 11:26 → JP.MS 15:26
PROVIDERS: ADMIT Hospitalist; ATTEND Hospitalist
DX: K56.609 Unspecified intestinal obstruction, unspecified as to partial versus complete obstruction (principal); E86.0 Dehydration; I10 Essential (primary) hypertension; I48.91 Unspecified atrial fibrillation; Z79.01 Long term (current) use of anticoagulants; Z87.891 Personal history of nicotine dependence; R10.13 Epigastric pain; R11.2 Nausea with vomiting, unspecified; Z86.73 Personal history of transient ischemic attack (TIA), and cerebral infarction without residual deficits; Z85.828 Personal history of other malignant neoplasm of skin; Z90.49 Acquired absence of other specified parts of digestive tract; M19.90 Unspecified osteoarthritis, unspecified site; H54.7 Unspecified visual loss; Z88.1 Allergy status to other antibiotic agents; Z88.8 Allergy status to other drugs, medicaments and biological substances
CPT/HCPCS: 36415; 74177 ×2; 80053; 81001; 83605; 83690; 84484; 85025; 85610; 93005; 96361; 96374; 96375; 99285; J1170; J2405; J7030; J7120; Q9967; 74021; 74021-26; 80048; A9270-GY; C9113; J1650; J3480; J3490

== ENCOUNTER 2019-03-11 13:25 | Emergency (ER) | payer MEDICARE, OTHER ==
--- NOTE | 2019-03-11 14:22 | EDM.PDOC ---
ED HPI GENERAL MEDICAL PROBLEM - General Chief Complaint: Abdominal Pain Stated Complaint: ABD PAIN, DIARRHEA, BP Time Seen by Provider: 03/11/19 14:13 Source of Information: Reports: Patient, Family, RN Notes Reviewed History Limitations: Reports: No Limitations - History of Present Illness INITIAL COMMENTS - FREE TEXT/NARRATIVE: 78-year-old female presents emergency department a complaint of nausea vomiting diarrhea she states she is she is been feeling ill for the last several days however the last 24 hours diarrhea has gotten progressively worse is tolerating orals but develops diarrhea almost immediately after intake. She denies any fevers shortness of breath she is having mostly lower chest and epigastric pain , she is passing gas loose watery stools Abdomen Pain Score (Numeric/FACES): 6 - Related Data Allergies Allergy/AdvReac Type Severity Reaction Status Date / Time amoxicillin [Amoxicillin] Allergy Hives Verified 03/11/19 13:53 Ldiseay-Hae-Arb Reductase Allergy Other Verified 03/11/19 13:53 Inhibitor ciprofloxacin AdvReac Other Verified 03/11/19 13:53 lisinopril AdvReac Nausea Verified 03/11/19 13:53 Home Meds: Home Meds Metoprolol Tartrate 25 mg PO BID 05/20/15 [History] Diltiazem [Dilacor XR] 120 mg PO BID 07/22/16 [History] Warfarin [Coumadin] 2.5 mg PO SUMOTUTHFRSA 07/22/16 [History] Calcium Carbonate/Vitamin D3 [Calcium 600 + Vit D Tablet] 1 tab PO BID 03/11/19 [History] L.acid/L.casei/B.bif/B.heydi/Fos [Probiotic Blend Capsule] 1 tab PO BID 03/11/19 [ History] Multivit with Calcium,Iron,Min [Essential Daily] 1 tab PO DAILY 03/11/19 [ History] Valsartan/Hydrochlorothiazide [Valsartan-Hctz 80-12.5 mg Tab] 1 tab PO DAILY 06/25 [History] Warfarin [Coumadin] 1.25 mg PO WE 03/11/19 [History] Past Medical History HEENT History: Reports: Cataract, Impaired Vision Cardiovascular History: Reports: Afib, High Cholesterol, Hypertension Gastrointestinal History: Reports: Pancreatitis [employer] History: Reports: Musculoskeletal History: Reports: Arthritis Neurological History: Reports: CVA, Migraines Hematologic History: Reports: Anticoagulation Therapy Oncologic (Cancer) History: Reports: Other (See Below) Other Oncologic History: skin Dermatologic History: Reports: Other (See Below) 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 - Infectious Disease History Infectious Disease History: Reports: C-Difficile, Measles, Mumps, Shingles - Past Surgical History HEENT Surgical History: Reports: None Cardiovascular Surgical History: Reports: Carotid Endarterectomy Respiratory Surgical History: Reports: None GI Surgical History: Reports: Cholecystectomy Other GI Surgeries/Procedures: colon resection Neurological Surgical History: Reports: None Musculoskeletal Surgical History: Reports: None Oncologic Surgical History: Reports: None, Other (See Below) Dermatological Surgical History: Reports: None Social & Family History - Family History Family Medical History: Noncontributory Cardiac: Reports: CAD, Hypertension - Tobacco Use Smoking Status *Q: Former Smoker Years of Tobacco use: 40 Packs/Tins Daily: 0.5 Used Tobacco, but Quit: No Second Hand Smoke Exposure: No - Caffeine Use Caffeine Use: Reports: Coffee, Soda Caffeine Use Comment: occ - Recreational Drug Use Recreational Drug Use: No - Living Situation & Occupation Living situation: Reports: , with Spouse ED ROS GENERAL - Review of Systems Review Of Systems: See Below Constitutional: Denies: Fever, Chills HEENT: Reports: No Symptoms Respiratory: Reports: No Symptoms Cardiovascular: Reports: Chest Pain GI/Abdominal: Reports: Abdominal Pain, Diarrhea, Nausea, Vomiting : Reports: No Symptoms ED EXAM, GI/ABD - Physical Exam Exam: See Below Exam Limited By: No Limitations General Appearance: Alert, WD/WN, No Apparent Distress Neck: Normal Inspection, Supple, Non-Tender, Full Range of Motion Respiratory/Chest: No Respiratory Distress, Lungs Clear, Normal Breath Sounds, No Accessory Muscle Use, Other (Tenderness to palpation along the lower rib cage bilaterally) Cardiovascular: Regular Rate, Rhythm, No Murmur GI/Abdominal Exam: Normal Bowel Sounds, Soft, No Distention, No Abnormal Bruit, Tender (Tender epigastric region) Course - Vital Signs Last Recorded V/S: Last Vital Signs Temp 97.9 F 03/11/19 13:46 Pulse 142 H 03/11/19 17:24 Resp 13 03/11/19 17:19 BP 149/80 H 03/11/19 17:24 Pulse Ox 97 03/11/19 17:19 - Orders/Labs/Meds Orders: Active Orders 24 hr Category Date Time Status Peripheral IV Care [RC] . DIRECTED Care 03/11/19 14:18 Active CULTURE URINE [RM] Urgent Lab 03/11/19 17:29 Received WBC, STOOL [OP] Urgent Lab 03/11/19 14:18 Ordered Lactated Ringers [Ringers, Lactated] 1,000 ml Med 03/11/19 14:30 Active IV ASDIRECTED Sodium Chloride 0.9% [Saline Flush] Med 03/11/19 14:18 Active 10 ml FLUSH ASDIRECTED PRN Peripheral IV Insertion Adult [OM.PC] Urgent Oth 03/11/19 14:18 Ordered Medication Orders Lactated Ringer's (Ringers, Lactated) 1,000 mls @ 999 mls/hr IV ASDIRECTED HECTOR Last Admin: 03/11/19 14:42 Dose: 999 mls/hr Sodium Chloride (Saline Flush) 10 ml FLUSH ASDIRECTED PRN PRN Reason: Keep Vein Open Last Admin: 03/11/19 14:43 Dose: 10 ml Labs: Laboratory Tests 03/11/19 03/11/19 03/11/19 Range/Units 14:25 14:30 14:30 WBC 8.6 (4.5-11.0) K/uL RBC 4.79 (3.30-5.50) M/uL Hgb 15.1 H (12.0-15.0) g/dL Hct 45.3 (36.0-48.0) % MCV 95 (80-98) fL MCH 32 H (27-31) pg MCHC 33 (32-36) % Plt Count 196 (150-400) K/uL Neut % (Auto) 73 H (36-66) % Lymph % (Auto) 19 L (24-44) % Kemper % (Auto) 7 H (2-6) % Eos % (Auto) 1 L (2-4) % Baso % (Auto) 1 (0-1) % PT 32.0 H (9.5-12.0) sec INR 3.16 H (0.80-1.20) Sodium 136 L (140-148) mmol/L Potassium 3.6 (3.6-5.2) mmol/L Chloride 98 L (100-108) mmol/L Carbon Dioxide 23 (21-32) mmol/L Anion Gap 18.6 H (5.0-14.0) mmol/L BUN 35 H D (7-18) mg/dL Creatinine 1.1 H D (0.6-1.0) mg/dL Est Cr Clr Drug Dosing 29.79 mL/min Estimated GFR (MDRD) 48 L (>60) Glucose 87 (74-106) mg/dL Lactic Acid (0.4-2.0) mmol/L Calcium 9.3 (8.5-10.1) mg/dL Total Bilirubin 0.5 (0.2-1.0) mg/dL AST 26 (15-37) U/L ALT 28 (12-78) U/L Alkaline Phosphatase 78 (46-116) U/L Troponin I < 0.017 (0.000-0.056) ng/mL Total Protein 8.0 (6.4-8.2) g/dL Albumin 3.8 (3.4-5.0) g/dL Globulin 4.2 H (2.3-3.5) g/dL Albumin/Globulin Ratio 0.9 L (1.2-2.2) Lipase 94 (73-393) U/L Urine Color (YELLOW) Urine Appearance (CLEAR) Urine pH (5.0-8.0) Ur Specific Tyler (1.008-1.030) Urine Protein (NEGATIVE) mg/dL Urine Glucose (UA) (NEGATIVE) mg/dL Urine Ketones (NEGATIVE) mg/dL Urine Occult Blood (NEGATIVE) Urine Nitrite (NEGATIVE) Urine Bilirubin (NEGATIVE) Urine Urobilinogen (0.2-1.0) EU/dL Ur Leukocyte Esterase (NEGATIVE) Urine RBC (0-5) Urine WBC (0-5) Ur Epithelial Cells Amorphous Sediment Urine Bacteria Urine Mucus 03/11/19 03/11/19 Range/Units 14:30 16:01 WBC (4.5-11.0) K/uL RBC (3.30-5.50) M/uL Hgb (12.0-15.0) g/dL Hct (36.0-48.0) % MCV (80-98) fL MCH (27-31) pg MCHC (32-36) % Plt Count (150-400) K/uL Neut % (Auto) (36-66) % Lymph % (Auto) (24-44) % Kemper % (Auto) (2-6) % Eos % (Auto) (2-4) % Baso % (Auto) (0-1) % PT (9.5-12.0) sec INR (0.80-1.20) Sodium (140-148) mmol/L Potassium (3.6-5.2) mmol/L Chloride (100-108) mmol/L Carbon Dioxide (21-32) mmol/L Anion Gap (5.0-14.0) mmol/L BUN (7-18) mg/dL Creatinine (0.6-1.0) mg/dL Est Cr Clr Drug Dosing mL/min Estimated GFR (MDRD) (>60) Glucose (74-106) mg/dL Lactic Acid 1.6 (0.4-2.0) mmol/L Calcium (8.5-10.1) mg/dL Total Bilirubin (0.2-1.0) mg/dL AST (15-37) U/L ALT (12-78) U/L Alkaline Phosphatase (46-116) U/L Troponin I (0.000-0.056) ng/mL Total Protein (6.4-8.2) g/dL Albumin (3.4-5.0) g/dL Globulin (2.3-3.5) g/dL Albumin/Globulin Ratio (1.2-2.2) Lipase (73-393) U/L Urine Color Yellow (YELLOW) Urine Appearance Clear (CLEAR) Urine pH 5.0 (5.0-8.0) Ur Specific Tyler 1.020 (1.008-1.030) Urine Protein Negative (NEGATIVE) mg/dL Urine Glucose (UA) Negative (NEGATIVE) mg/dL Urine Ketones 15 H (NEGATIVE) mg/dL Urine Occult Blood Moderate H (NEGATIVE) Urine Nitrite Negative (NEGATIVE) Urine Bilirubin Small H (NEGATIVE) Urine Urobilinogen 0.2 (0.2-1.0) EU/dL Ur Leukocyte Esterase Trace H (NEGATIVE) Urine RBC 10-20 H (0-5) Urine WBC 5-10 H (0-5) Ur Epithelial Cells Few Amorphous Sediment Few Urine Bacteria Not seen Urine Mucus Not seen Meds: Medications Generic Name Dose Route Start Last Admin Trade Name Freq PRN Reason Stop Dose Admin Lactated Ringer's 1,000 mls @ 999 mls/hr 03/11/19 14:30 03/11/19 14:42 Ringers, Lactated IV 999 mls/hr ASDIRECTED HECTOR Administration Sodium Chloride 10 ml 03/11/19 14:18 03/11/19 14:43 Saline Flush FLUSH 10 ml ASDIRECTED PRN Administration Keep Vein Open Discontinued Medications Generic Name Dose Route Start Last Admin Trade Name Stephenq PRN Reason Stop Dose Admin Diltiazem HCl 120 mg 03/11/19 17:15 03/11/19 17:22 Cardizem Cd PO 03/11/19 17:16 120 mg ONETIME ONE Administration Metoprolol Tartrate 25 mg 03/11/19 17:14 03/11/19 17:24 Lopressor PO 03/11/19 17:15 25 mg ONETIME ONE Administration Ondansetron HCl 4 mg 03/11/19 14:19 03/11/19 14:41 Zofran IVPUSH 03/11/19 14:20 4 mg ONETIME ONE Administration Departure - Departure Time of Disposition: 18:14 Disposition: Home, Self-Care 01 Condition: Fair Clinical Impression: Gastroenteritis - Discharge Information Instructions: Viral Gastroenteritis, Adult Referrals: PCP,None [Primary Care Provider] - Forms: ED Department Discharge Additional Instructions: Continue to push fluids, please followup with your primary care provider in 3- 5 days if not better, please call return to the emergency department with worsening of symptoms. - My Orders Last 24 Hours: My Active Orders 03/11/19 14:18 Peripheral IV Care [RC] . DIRECTED WBC, STOOL [OP] Urgent Sodium Chloride 0.9% [Saline Flush] 10 ml FLUSH ASDIRECTED PRN Peripheral IV Insertion Adult [OM.PC] Urgent 03/11/19 14:30 Lactated Ringers [Ringers, Lactated] 1,000 ml IV ASDIRECTED 03/11/19 17:29 CULTURE URINE [RM] Urgent - Assessment/Plan Last 24 Hours: My Active Orders 03/11/19 14:18 Peripheral IV Care [RC] . DIRECTED WBC, STOOL [OP] Urgent Sodium Chloride 0.9% [Saline Flush] 10 ml FLUSH ASDIRECTED PRN Peripheral IV Insertion Adult [OM.PC] Urgent 03/11/19 14:30 Lactated Ringers [Ringers, Lactated] 1,000 ml IV ASDIRECTED 03/11/19 17:29 CULTURE URINE [RM] Urgent Plan: Assessment Acuity = acute Site and laterality = gastroenteritis Etiology = probably viral Manifestations = diarrhea Location of injury = Home Lab values = CBC unremarkable INR therapeutic at 3.16 creatinine elevated 1.1 consistent with acute renal failure stage C4 troponin is negative urinalysis reveals 10-20 RBCs consistent with hematuria 5-10 WBCs consistent with pyuria rare bacteria cultures pending influenza a and B both negative Plan She received 1 L fluids while in the ED which did her symptomology plan is to discharge to home follow-up with primary care in 3 to 5 days if not better This note was dictated using [employer] voice recognition software please call with any questions on syntax or grammar.
[2019-03-11] MEDS: Ondansetron 4 MG/2 ML SDV IVPUSH ONE (14:41)
[2019-03-11] MEDS: Lactated Ringers 1,000 ML IV SCH (14:42)
[2019-03-11] MEDS: Sodium Chloride 0.9% 10 ML Syringe FLUSH PRN (14:43)
[2019-03-11] MEDS: Diltiazem 120 MG Cap.CD PO ONE (17:22)
[2019-03-11 17:24] VITALS: BP 149/80
[2019-03-11] MEDS: Metoprolol Tartrate 25 MG Tab PO ONE (17:24)
[2019-03-11 18:29] VITALS: PULSE 106
== END 2019-03-11 18:40 | disposition home or self-care (01) ==
LOC: JP.ED 13:25
DX: K52.9 Noninfective gastroenteritis and colitis, unspecified (principal); I48.91 Unspecified atrial fibrillation; E78.00 Pure hypercholesterolemia, unspecified; I10 Essential (primary) hypertension; Z88.0 Allergy status to penicillin; Z88.1 Allergy status to other antibiotic agents; Z88.8 Allergy status to other drugs, medicaments and biological substances; Z79.01 Long term (current) use of anticoagulants; Z86.73 Personal history of transient ischemic attack (TIA), and cerebral infarction without residual deficits; Z85.828 Personal history of other malignant neoplasm of skin; Z87.891 Personal history of nicotine dependence; Z79.899 Other long term (current) drug therapy
CPT/HCPCS: 36415; 80053; 81001; 83605; 83690; 84484; 85025; 85610; 87086; 87804; 87804-59; 96361; 96374; 99284-25; A9270-GY; J2405; J7120

== ENCOUNTER 2019-09-05 07:04 | Day surgery (SDC) | payer MEDICARE, OTHER ==
[2019-09-05] MEDS ORDERED: fentaNYL 100 MCG/2 ML SDV ONE (07:12)
[2019-09-05] MEDS ORDERED: Propofol 200 MG/20 ML SDV ONE (07:12)
[2019-09-05] MEDS ORDERED: Dextrose 5%-Lactated Ringers 1,000 ML IV SCH (07:45)
[2019-09-05] MEDS ORDERED: ceFAZolin 1 GM in Premix Bag 1 BAG IV ONE (08:00)
[2019-09-05] MEDS ORDERED: Lidocaine 1% 50 ML MDV ONE (09:08)
[2019-09-05] MEDS ORDERED: Lidocaine 1% with EPINEPHrine 1:100,000 50 ML MDV ONE (09:08)
[2019-09-05] MEDS ORDERED: Bupivacaine 0.5% 50 ML MDV ONE (09:08)
[2019-09-05] MEDS ORDERED: Bacitracin Oint 1 GM U/D Packet ONE (09:19)
[2019-09-05 10:54] VITALS: BP 120/78; PULSE 76
--- NOTE | 2019-09-17 14:22 | OR ---
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 OPERATIVE PROCEDURE: Excision of probable squamous cell carcinoma, left side of nose with layered closure ([id number]). ANESTHESIA: Local plus IV sedation. INDICATION FOR PROCEDURE: This is an 79-year-old female, presenting with what appears to be an area of squamous cell carcinoma likely located within the field of actinic keratosis. Plan is to proceed with excision of this with local plus IV sedation. Potential risks including bleeding, infection, possible local recurrence of the lesion or possible margins appearing on the pathology report were all reviewed, and the patient wishes to proceed. DETAILS OF PROCEDURE: The patient was taken to the operative room and placed in supine position. The nasal area was then prepped and draped while the patient received some local anesthetic into the area of concern. An oblique transversely oriented incision on the long axis of the lesion was then made, carried down through the skin and subcutaneous tissue, and the lesion removed intact with a small amount of normal-appearing skin around it. The lesion plus margin length was 1.1 cm and the incision length 3.1 cm. Deeper soft tissues were approximated with some 6-0 Vicryl stitch and the skin with 6-0 Prolene stitch. Bacitracin was applied. The patient will be seen next Sunday for followup. Danilo Sandra MD /[id number]
== END 2019-09-05 11:05 | disposition home or self-care (01) ==
LOC: JP.SDS 07:04
PROVIDERS: ATTEND Surgery
DX: D04.39 Carcinoma in situ of skin of other parts of face (principal); L57.0 Actinic keratosis; F17.200 Nicotine dependence, unspecified, uncomplicated; I10 Essential (primary) hypertension; E78.5 Hyperlipidemia, unspecified
CPT/HCPCS: 11642; 12052; 88305; J0690; J2704; J3010; J3490; J7121; J2001

== ENCOUNTER 2020-12-09 10:19 | Emergency (ER) | payer MEDICARE, OTHER ==
[2020-12-09 11:34] VITALS: BP 142/92; PULSE 107
[2020-12-09] MEDS ORDERED: Ketorolac 30 MG/ML SDV IM ONE (11:46)
--- NOTE | 2020-12-09 11:49 | EDM.PDOC ---
ED HPI GENERAL MEDICAL PROBLEM - General Chief Complaint: General Stated Complaint: PAINFUL ALL OVER Time Seen by Provider: 12/09/20 11:41 Source of Information: Reports: Patient, Family, RN Notes Reviewed History Limitations: Reports: No Limitations - History of Present Illness INITIAL COMMENTS - FREE TEXT/NARRATIVE: 80-year-old female presents emergency department today with complaint of abdominal pain back pain chest pain since been going on for the last 2 days generalized feeling fatigued and tired with generalized body aches, denies any fever or shortness of breath no nausea or vomiting Tylenol does provide some relief Middle Back Pain Score (Numeric/FACES): 7 - Related Data Allergies Allergy/AdvReac Type Severity Reaction Status Date / Time alendronate sodium Allergy Other Verified 09/03/19 14:16 [From Fosamax] amoxicillin [Amoxicillin] Allergy Hives Verified 03/11/19 13:53 aspirin Allergy Other Verified 09/03/19 14:16 atorvastatin [From Lipitor] Allergy Muscle Verified 09/03/19 14:16 Aches diclofenac Allergy Diarrhea Verified 09/03/19 14:16 niacin Allergy Diarrhea Verified 09/03/19 14:16 rosuvastatin [From Crestor] Allergy Muscle Verified 09/03/19 14:16 Aches Jlbnymz-Wnb-Uru Reductase Allergy Other Verified 03/11/19 13:53 Inhibitor ciprofloxacin AdvReac Other Verified 03/11/19 13:53 lisinopril AdvReac Nausea Verified 03/11/19 13:53 Home Meds: Home Meds Metoprolol Tartrate 25 mg PO BID 05/20/15 [History] Diltiazem [Dilacor XR] 120 mg PO BID 07/22/16 [History] Warfarin [Coumadin] 1.25 mg PO WE 07/22/16 [History] Calcium Carbonate/Vitamin D3 [Calcium 600 + Vit D Tablet] 1 tab PO BID 03/11/19 [History] L.acid/L.casei/B.bif/B.heydi/Fos [Probiotic Blend Capsule] 1 tab PO BID 03/11/19 [History] Multivit with Calcium,Iron,Min [Essential Daily] 1 tab PO DAILY 03/11/19 [History] Valsartan/Hydrochlorothiazide [Valsartan-Hctz 80-12.5 mg Tab] 1 tab PO DAILY 03/11/19 [History] Warfarin [Coumadin] 2.5 mg PO MOFR 09/03/19 [History] Past Medical History HEENT History: Reports: Cataract, Impaired Vision Cardiovascular History: Reports: Afib, High Cholesterol, Hypertension Gastrointestinal History: Reports: Pancreatitis [employer]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: Musculoskeletal History: Reports: Arthritis Neurological History: Reports: CVA, Migraines Hematologic History: Reports: Anticoagulation Therapy Oncologic (Cancer) History: Reports: Other (See Below) Other Oncologic History: skin Dermatologic History: Reports: Other (See Below) 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 - Infectious Disease History Infectious Disease History: Reports: Chicken Pox, Measles, Mumps - Past Surgical History HEENT Surgical History: Reports: None Cardiovascular Surgical History: Reports: Carotid Endarterectomy Respiratory Surgical History: Reports: None GI Surgical History: Reports: Cholecystectomy, Colonoscopy Other GI Surgeries/Procedures: colon resection Female Surgical History: Reports: Breast Biopsy Neurological Surgical History: Reports: None Musculoskeletal Surgical History: Reports: None Oncologic Surgical History: Reports: None, Other (See Below) Other Oncologic Surgeries/Procedures: resection on lip Dermatological Surgical History: Reports: None Social & Family History - Family History Family Medical History: No Pertinent Family History Cardiac: Reports: CAD, Hypertension - Tobacco Use Tobacco Use Status *Q: Never Tobacco User - Caffeine Use Caffeine Use: Reports: Coffee Caffeine Use Comment: occ - Living Situation & Occupation Living situation: Reports: , with Spouse ED ROS GENERAL - Review of Systems Review Of Systems: See Below Constitutional: Denies: Fever, Fatigue HEENT: Reports: No Symptoms Respiratory: Reports: No Symptoms Cardiovascular: Reports: Chest Pain GI/Abdominal: Reports: Abdominal Pain, Flatus. Denies: Nausea, Vomiting Musculoskeletal: Reports: Back Pain ED EXAM, GENERAL - Physical Exam Exam: See Below Exam Limited By: No Limitations General Appearance: Alert, WD/WN, No Apparent Distress Respiratory/Chest: No Respiratory Distress, Lungs Clear, Normal Breath Sounds, No Accessory Muscle Use, Chest Non-Tender Cardiovascular: No Murmur, Irregularly Irregular Back Exam: Normal Inspection, Full Range of Motion, Vertebral Tenderness (T4 level). No: CVA Tenderness (R), CVA Tenderness (L) Course - Vital Signs Last Recorded V/S: Last Vital Signs Temp 98 F 12/09/20 11:33 Pulse 107 H 12/09/20 11:33 Resp 20 12/09/20 11:33 BP 142/92 H 12/09/20 11:33 Pulse Ox 97 12/09/20 11:33 - Orders/Labs/Meds Labs: Laboratory Tests 12/09/20 12/09/20 12/09/20 Range/Units 12:02 12:02 12:02 WBC 8.3 (4.5-11.0) K/uL RBC 4.23 (3.30-5.50) M/uL Hgb 13.8 (12.0-15.0) g/dL Hct 40.4 (36.0-48.0) % MCV 96 (80-98) fL MCH 33 H (27-31) pg MCHC 34 (32-36) % Plt Count 144 L (150-400) K/uL Neut % (Auto) 75.5 H (36-66) % Lymph % (Auto) 13.7 L (24-44) % Faulkner % (Auto) 9.9 H (2-6) % Eos % (Auto) 0.7 L (2-4) % Baso % (Auto) 0.2 (0-1) % PT 30.1 H (9.5-12.0) sec INR 2.82 H (0.80-1.20) Sodium 134 L (140-148) mmol/L Potassium 3.6 (3.6-5.2) mmol/L Chloride 95 L (100-108) mmol/L Carbon Dioxide 27 (21-32) mmol/L Anion Gap 15.6 H (5.0-14.0) mmol/L BUN 20 H (7-18) mg/dL Creatinine 1.1 H (0.6-1.0) mg/dL Est Cr Clr Drug Dosing 28.81 mL/min Estimated GFR (MDRD) 48 L (>60) Glucose 106 (74-106) mg/dL Calcium 9.4 (8.5-10.1) mg/dL Total Bilirubin 0.9 D (0.2-1.0) mg/dL AST 36 (15-37) U/L ALT 34 (12-78) U/L Alkaline Phosphatase 95 (46-116) U/L Troponin I (0.000-0.056) ng/mL Total Protein 7.4 (6.4-8.2) g/dL Albumin 3.3 L (3.4-5.0) g/dL Globulin 4.1 H (2.3-3.5) g/dL Albumin/Globulin Ratio 0.8 L (1.2-2.2) Lipase (73-393) U/L 12/09/20 12/09/20 Range/Units 12:02 12:02 WBC (4.5-11.0) K/uL RBC (3.30-5.50) M/uL Hgb (12.0-15.0) g/dL Hct (36.0-48.0) % MCV (80-98) fL MCH (27-31) pg MCHC (32-36) % Plt Count (150-400) K/uL Neut % (Auto) (36-66) % Lymph % (Auto) (24-44) % Faulkner % (Auto) (2-6) % Eos % (Auto) (2-4) % Baso % (Auto) (0-1) % PT (9.5-12.0) sec INR (0.80-1.20) Sodium (140-148) mmol/L Potassium (3.6-5.2) mmol/L Chloride (100-108) mmol/L Carbon Dioxide (21-32) mmol/L Anion Gap (5.0-14.0) mmol/L BUN (7-18) mg/dL Creatinine (0.6-1.0) mg/dL Est Cr Clr Drug Dosing mL/min Estimated GFR (MDRD) (>60) Glucose (74-106) mg/dL Calcium (8.5-10.1) mg/dL Total Bilirubin (0.2-1.0) mg/dL AST (15-37) U/L ALT (12-78) U/L Alkaline Phosphatase (46-116) U/L Troponin I < 0.017 (0.000-0.056) ng/mL Total Protein (6.4-8.2) g/dL Albumin (3.4-5.0) g/dL Globulin (2.3-3.5) g/dL Albumin/Globulin Ratio (1.2-2.2) Lipase 65 L (73-393) U/L Meds: Medications Discontinued Medications Generic Name Dose Route Start Last Admin Trade Name Freq PRN Reason Stop Dose Admin Ketorolac Tromethamine 30 mg 09/02/21 11:46 12/09/20 12:14 Ketorolac 30 Mg/Ml Sdv IM 12/09/20 11:47 30 mg ONETIME ONE Administration Departure - Departure Time of Disposition: 15:03 Disposition: Home, Self-Care 01 Condition: Fair Clinical Impression: Thoracic compression fracture Qualifiers: Encounter type: initial encounter Thoracic vertebra fracture level: unspecified thoracic vertebra Qualified Code(s): S22.000A - Wedge compression fracture of unspecified thoracic vertebra, initial encounter for closed fracture - Discharge Information Instructions: Balloon Kyphoplasty, Thoracic Spine Fracture, [id number] Referrals: Stanley Hernandez MD [Primary Care Provider] - Forms: ED Department Discharge Additional Instructions: Please follow-up with your primary care for further evaluation and treatment options call return to the emergency department worsening of symptoms, Sepsis Event Note (ED) - Evaluation Sepsis Screening Result: No Definite Risk - Focused Exam Vital Signs: Vital Signs Temp Pulse Resp BP Pulse Ox 12/09/20 11:33 98 F 107 H 20 142/92 H 97 - Assessment/Plan Plan: Assessment Acuity = acute Site and laterality = multiple thoracic compression fractures Etiology = unknown osteoporosis contributing factor Manifestations = back pain Location of injury = Home Lab values = CBC unremarkable INR therapeutic 2.83 creatinine elevated to 1.1 consistent chronic renal failure stage T3a troponin is negative, thoracic spine films show chronic compression fractures. Plan She is can continue to use Tylenol as needed she has appointment with her primary care next week for further evaluation This note was dictated using [employer] voice recognition software please call with any questions on syntax or grammar.
--- NOTE | 2020-12-09 14:40 | CR ---
Thoracic Spine 3V CLINICAL HISTORY: Pain FINDINGS: There is a moderate compression deformity of T8. And T7 There is also a superior endplate compression deformity at T12. Bones are osteoporotic. There are some diffuse degenerative disc changes with spondylosis. There are atherosclerotic changes in the aorta. Impression: Significant compression deformity of T8 and a moderate compression deformity of T7. There is a mild superior endplate compression deformity at T12. Chronology is not known Degenerative disc changes Osteoporosis
== END 2020-12-09 15:11 | disposition home or self-care (01) ==
LOC: JP.ED 10:19
DX: S22.060A Wedge compression fracture of T7-T8 vertebra, initial encounter for closed fracture (principal); S22.080A Wedge compression fracture of T11-T12 vertebra, initial encounter for closed fracture; I48.91 Unspecified atrial fibrillation; E78.00 Pure hypercholesterolemia, unspecified; I10 Essential (primary) hypertension; Z88.0 Allergy status to penicillin; Z88.1 Allergy status to other antibiotic agents; Z88.8 Allergy status to other drugs, medicaments and biological substances; Z79.01 Long term (current) use of anticoagulants; Z86.73 Personal history of transient ischemic attack (TIA), and cerebral infarction without residual deficits; X58.XXXA Exposure to other specified factors, initial encounter
CPT/HCPCS: 36415; 72072; 80053; 83690; 84484; 85025; 85610; 96372; 99284; J1885

== ENCOUNTER 2020-12-11 13:01 | Emergency (ER) | payer MEDICARE, OTHER ==
[2020-12-11 13:58] VITALS: BP 129/58; PULSE 89
[2020-12-11] MEDS ORDERED: Acetaminophen/HYDROcodone 325-5 MG Tab PO ONE (14:12)
--- NOTE | 2020-12-11 14:18 | EDM.PDOC ---
ED HPI GENERAL MEDICAL PROBLEM - General Chief Complaint: Back Pain or Injury Stated Complaint: BACK PAIN Time Seen by Provider: 12/11/20 14:00 Source of Information: Reports: Patient, Family, Old Records History Limitations: Reports: No Limitations - History of Present Illness INITIAL COMMENTS - FREE TEXT/NARRATIVE: 80 yo female was seen here a couple days ago for a thoracic compression fx. She was treated with a non-narcotic regimen after she declined narcotic pain meds. Has an appt with her primary care provider next , but needs something stronger now. 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: Reports: Acetaminophen, NSAIDS, Other (see below) (ice) Back Pain Score (Numeric/FACES): 8 - Related Data Allergies Allergy/AdvReac Type Severity Reaction Status Date / Time alendronate sodium Allergy Other Verified 12/11/20 13:58 [From Fosamax] amoxicillin [Amoxicillin] Allergy Hives Verified 12/11/20 13:58 aspirin Allergy Other Verified 12/11/20 13:58 atorvastatin [From Lipitor] Allergy Muscle Verified 12/11/20 13:58 Aches diclofenac Allergy Diarrhea Verified 12/11/20 13:58 niacin Allergy Diarrhea Verified 12/11/20 13:58 rosuvastatin [From Crestor] Allergy Muscle Verified 12/11/20 13:58 Aches Ggvpzqa-Mji-Hlg Reductase Allergy Other Verified 12/11/20 13:58 Inhibitor ciprofloxacin AdvReac Other Verified 12/11/20 13:58 lisinopril AdvReac Nausea Verified 12/11/20 13:58 Home Meds: Home Meds Metoprolol Tartrate 25 mg PO BID 05/20/15 [History] Diltiazem [Dilacor XR] 120 mg PO BID 07/22/16 [History] Warfarin [Coumadin] 1.25 mg PO WE 07/22/16 [History] Calcium Carbonate/Vitamin D3 [Calcium 600 + Vit D Tablet] 1 tab PO BID 03/11/19 [History] L.acid/L.casei/B.bif/B.heydi/Fos [Probiotic Blend Capsule] 1 tab PO BID 03/11/19 [History] Multivit with Calcium,Iron,Min [Essential Daily] 1 tab PO DAILY 03/11/19 [History] Valsartan/Hydrochlorothiazide [Valsartan-Hctz 80-12.5 mg Tab] 1 tab PO DAILY 03/11/19 [History] Warfarin [Coumadin] 2.5 mg PO MOFR 09/03/19 [History] Acetaminophen/Codeine [Tylenol with Codeine No.3 300MG/30MG] 2 tab PO Q6H PRN 12/11/20 [History] Past Medical History HEENT History: Reports: Cataract, Impaired Vision Cardiovascular History: Reports: Afib, High Cholesterol, Hypertension Gastrointestinal History: Reports: Pancreatitis Genitourinary History: Reports: None 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: Musculoskeletal History: Reports: Arthritis Neurological History: Reports: CVA, Migraines Hematologic History: Reports: Anticoagulation Therapy Oncologic (Cancer) History: Reports: Other (See Below) Other Oncologic History: skin Dermatologic History: Reports: Other (See Below) 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 - Infectious Disease History Infectious Disease History: Reports: Chicken Pox, Measles, Mumps - Past Surgical History HEENT Surgical History: Reports: None Cardiovascular Surgical History: Reports: Carotid Endarterectomy Respiratory Surgical History: Reports: None GI Surgical History: Reports: Cholecystectomy, Colonoscopy Other GI Surgeries/Procedures: colon resection Female Surgical History: Reports: Breast Biopsy Neurological Surgical History: Reports: None Musculoskeletal Surgical History: Reports: None Oncologic Surgical History: Reports: None, Other (See Below) Other Oncologic Surgeries/Procedures: resection on lip Dermatological Surgical History: Reports: None Social & Family History - Family History Family Medical History: No Pertinent Family History Cardiac: Reports: CAD, Hypertension - Tobacco Use Tobacco Use Status *Q: Never Tobacco User - Caffeine Use Caffeine Use: Reports: Coffee Caffeine Use Comment: occ - Living Situation & Occupation Living situation: Reports: , with Spouse ED ROS GENERAL - Review of Systems Review Of Systems: See Below Constitutional: Reports: No Symptoms HEENT: Reports: No Symptoms Respiratory: Reports: No Symptoms Cardiovascular: Reports: No Symptoms GI/Abdominal: Reports: No Symptoms : Reports: No Symptoms Musculoskeletal: Reports: Back Pain Skin: Reports: No Symptoms Neurological: Reports: No Symptoms ED EXAM, UPPER BACK/NECK PAIN - Physical Exam Exam: See Below Exam Limited By: No Limitations General Appearance: Alert, WD/WN, No Apparent Distress Eye Exam: Bilateral Eye: Normal Inspection Ears Exam: Normal External Exam, Normal Canal, Hearing Grossly Normal, Normal TMs Nose Exam: Normal Inspection, No Blood Throat/Mouth Exam: Normal Inspection, Normal Lips, Normal Voice, No Airway Compromise Head Exam: Atraumatic, Normocephalic Extremities: Normal Inspection Neurologic: No Motor/Sensory Deficits, Alert, Normal Mood/Affect, Oriented x 3 Psychiatric: Normal Affect, Normal Mood Skin Exam: Normal Color, Warm/Dry Course - Vital Signs Last Recorded V/S: Last Vital Signs Temp 36.2 C 12/11/20 13:57 Pulse 89 12/11/20 13:57 Resp 18 12/11/20 13:57 BP 129/58 L 12/11/20 13:57 Pulse Ox 97 12/11/20 13:57 - Orders/Labs/Meds Meds: Medications Discontinued Medications Generic Name Dose Route Start Last Admin Trade Name Freq PRN Reason Stop Dose Admin Hydrocodone Bitart/Acetaminophen 1 tab 12/11/20 14:12 12/11/20 14:27 Acetaminophen/Hydrocodone 325-5 Mg Tab PO 12/11/20 14:13 1 tab ONETIME ONE Administration Departure - Departure Time of Disposition: 14:30 Disposition: Home, Self-Care 01 Condition: Fair Clinical Impression: Compression fracture of thoracic spine, non-traumatic Qualifiers: Encounter type: subsequent encounter Thoracic vertebra fracture level: T8 Fracture healing: with routine healing Qualified Code(s): M48.54XD - Collapsed vertebra, not elsewhere classified, thoracic region, subsequent encounter for fracture with routine healing - Discharge Information *PRESCRIPTION DRUG MONITORING PROGRAM REVIEWED*: No *COPY OF PRESCRIPTION DRUG MONITORING REPORT IN PATIENT BETTY: No Referrals: Stanley Hernandez MD [Primary Care Provider] - Forms: ED Department Discharge Additional Instructions: Use ibuprofen 400 mg every 6 hrs with food for pain relief. Add [place] or acetaminophen for added relief. Talk with your provider Sunday about your pain issues. Keep your appt as scheduled. Sepsis Event Note (ED) - Evaluation Sepsis Screening Result: No Definite Risk - Focused Exam Vital Signs: Vital Signs Temp Pulse Resp BP Pulse Ox 12/11/20 13:57 36.2 C 89 18 129/58 L 97
== END 2020-12-11 14:52 | disposition home or self-care (01) ==
LOC: JP.ED 13:01
DX: M48.54XD Collapsed vertebra, not elsewhere classified, thoracic region, subsequent encounter for fracture with routine healing (principal); I48.91 Unspecified atrial fibrillation; I10 Essential (primary) hypertension; M19.90 Unspecified osteoarthritis, unspecified site; Z79.01 Long term (current) use of anticoagulants; Z88.8 Allergy status to other drugs, medicaments and biological substances; Z88.0 Allergy status to penicillin; Z88.1 Allergy status to other antibiotic agents; Z79.899 Other long term (current) drug therapy
CPT/HCPCS: 99283; A9270

== ENCOUNTER 2021-02-04 09:23 | Emergency (ER) | payer MEDICARE, OTHER ==
[2021-02-04] MEDS ORDERED: Sodium Chloride 0.9% 10 ML Syringe FLUSH PRN (10:47)
--- NOTE | 2021-02-04 10:52 | EDM.PDOC ---
ED HPI GENERAL MEDICAL PROBLEM - General Chief Complaint: General Stated Complaint: DIGESTIVE SYSTEM Time Seen by Provider: 02/04/21 10:23 Source of Information: Reports: Patient, Family, Old Records, RN Notes Reviewed History Limitations: Reports: No Limitations - History of Present Illness INITIAL COMMENTS - FREE TEXT/NARRATIVE: 80-year-old female presents emergency department day complaint of weakness, she states she has been weak for the last several months has continued to lose weight she is currently at about 50 kg, I have evaluated her myself approximately 2 months ago same complaint at that time lab work was unremarkable. She has been evaluated by her primary care ongoing complaints she has been reluctant to see a specialist undergo any other invasive procedures as she does have a history of perforation secondary to colonoscopy at age 59. She has had small bowel obstructions in the past thought to be related to adhesions. She is very vague in her complaint of weakness states she just does not have any energy does not want to move feels her muscles are stiff does not complain of any joint symptoms no shortness of breath no chest pain states she is not depressed - Related Data Allergies Allergy/AdvReac Type Severity Reaction Status Date / Time alendronate sodium Allergy Other Verified 12/11/20 13:58 [From Fosamax] amoxicillin [Amoxicillin] Allergy Hives Verified 12/11/20 13:58 aspirin Allergy Other Verified 12/11/20 13:58 atorvastatin [From Lipitor] Allergy Muscle Verified 12/11/20 13:58 Aches diclofenac Allergy Diarrhea Verified 12/11/20 13:58 morphine Allergy Chest Verified 02/04/21 10:30 Tightness niacin Allergy Diarrhea Verified 12/11/20 13:58 rosuvastatin [From Crestor] Allergy Muscle Verified 12/11/20 13:58 Aches Yvhjyzx-TPD-NtO Reductase Allergy Other Verified 12/11/20 13:58 Inhibitor [Ytprcij-Rib-Jzz Reductase Inhibitor] ciprofloxacin AdvReac Other Verified 12/11/20 13:58 lisinopril AdvReac Nausea Verified 12/11/20 13:58 Home Meds: Home Meds Metoprolol Tartrate 25 mg PO BID 05/20/15 [History] Diltiazem [Dilacor XR] 120 mg PO BID 07/22/16 [History] Warfarin [Coumadin] 1.25 mg PO WE 07/22/16 [History] Calcium Carbonate/Vitamin D3 [Calcium 600 + Vit D Tablet] 1 tab PO BID 03/11/19 [History] L.acid/L.casei/B.bif/B.heydi/Fos [Probiotic Blend Capsule] 1 tab PO BID 03/11/19 [History] Multivit with Calcium,Iron,Min [Essential Daily] 1 tab PO DAILY 03/11/19 [History] Valsartan/Hydrochlorothiazide [Valsartan-Hctz 80-12.5 mg Tab] 1 tab PO DAILY 03/11/19 [History] Warfarin [Coumadin] 2.5 mg PO MOFR 09/03/19 [History] Ondansetron [Zofran ODT] 4 mg PO Q8H 02/04/21 [History] Past Medical History HEENT History: Reports: Cataract, Impaired Vision Cardiovascular History: Reports: Afib, High Cholesterol, Hypertension Gastrointestinal History: Reports: Pancreatitis 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: Musculoskeletal History: Reports: Arthritis, 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 Neurological History: Reports: CVA, Migraines, Other (See Below) Other Neuro History: compression fx Hematologic History: Reports: Anticoagulation Therapy Oncologic (Cancer) History: Reports: Other (See Below) Other Oncologic History: skin Dermatologic History: Reports: Other (See Below) 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 - Infectious Disease History Infectious Disease History: Reports: Chicken Pox, Measles, Mumps - Past Surgical History HEENT Surgical History: Reports: None Cardiovascular Surgical History: Reports: Carotid Endarterectomy Respiratory Surgical History: Reports: None GI Surgical History: Reports: Cholecystectomy, Colonoscopy Other GI Surgeries/Procedures: colon resection Female Surgical History: Reports: Breast Biopsy Neurological Surgical History: Reports: Other (See Below) Musculoskeletal Surgical History: Reports: None Oncologic Surgical History: Reports: None, Other (See Below) Other Oncologic Surgeries/Procedures: resection on lip Dermatological Surgical History: Reports: None Social & Family History - Family History Family Medical History: No Pertinent Family History Cardiac: Reports: CAD, Hypertension - Tobacco Use Tobacco Use Status *Q: Former Tobacco User Used Tobacco, but Quit: Yes Month/Year Tobacco Last Used: 20yrs ago - Caffeine Use Caffeine Use: Reports: Coffee Caffeine Use Comment: occ - Recreational Drug Use Recreational Drug Use: Yes - Living Situation & Occupation Living situation: Reports: , with Spouse ED ROS GENERAL - Review of Systems Review Of Systems: See Below Constitutional: Reports: Weakness, Fatigue HEENT: Reports: No Symptoms Respiratory: Reports: No Symptoms Cardiovascular: Reports: No Symptoms GI/Abdominal: Reports: No Symptoms : Reports: No Symptoms Musculoskeletal: Reports: No Symptoms Skin: Reports: No Symptoms Neurological: Reports: Weakness Psychiatric: Denies: Depression ED EXAM, GENERAL - Physical Exam Exam: See Below Exam Limited By: No Limitations General Appearance: Alert, WD/WN, No Apparent Distress Respiratory/Chest: No Respiratory Distress, Lungs Clear, Normal Breath Sounds, No Accessory Muscle Use, Chest Non-Tender Cardiovascular: Regular Rate, Rhythm, No Murmur GI/Abdominal: Normal Bowel Sounds, Soft, Non-Tender Course - Vital Signs Last Recorded V/S: Last Vital Signs Temp 97.7 F 02/04/21 10:00 Pulse 96 02/04/21 12:23 Resp 18 02/04/21 11:17 BP 132/74 02/04/21 12:23 Pulse Ox 92 L 02/04/21 12:23 - Orders/Labs/Meds Orders: Active Orders 24 hr Category Date Time Status Peripheral IV Care [RC] . DIRECTED Care 02/04/21 10:48 Active Dextrose 5%-0.45% NaCl [Dextrose 5%-1/2 NS] 500 ml Med 02/04/21 11:00 Active IV .BOLUS Sodium Chloride 0.9% [Saline Flush] Med 02/04/21 10:47 Active 10 ml FLUSH ASDIRECTED PRN Peripheral IV Insertion Adult [OM.PC] Urgent Oth 02/04/21 10:47 Ordered Medication Orders Dextrose/Sodium Chloride (Dextrose 5%-1/2 Ns) 500 mls @ 999 mls/hr IV .BOLUS HECTOR Last Admin: 02/04/21 11:14 Dose: 999 mls/hr Documented by: SANAZ Sodium Chloride (Sodium Chloride 0.9% 10 Ml Syringe) 10 ml FLUSH ASDIRECTED PRN PRN Reason: Keep Vein Open Last Admin: 02/04/21 11:14 Dose: 10 ml Documented by: SANAZ Labs: Laboratory Tests 02/04/21 02/04/21 02/04/21 Range/Units 11:14 11:14 11:14 WBC 9.8 (4.5-11.0) K/uL RBC 4.80 (3.30-5.50) M/uL Hgb 14.9 (12.0-15.0) g/dL Hct 44.6 (36.0-48.0) % MCV 93 (80-98) fL MCH 31 (27-31) pg MCHC 33 (32-36) % Plt Count 332 (150-400) K/uL Neut % (Auto) 78.2 H (36-66) % Lymph % (Auto) 13.6 L (24-44) % Amelia % (Auto) 6.7 H (2-6) % Eos % (Auto) 1.1 L (2-4) % Baso % (Auto) 0.4 (0-1) % ESR (0-25) mm/hr Sodium 131 L (140-148) mmol/L Potassium 2.6 L* (3.6-5.2) mmol/L Chloride 91 L (100-108) mmol/L Carbon Dioxide 32 (21-32) mmol/L Anion Gap 10.6 (5.0-14.0) mmol/L BUN 17 (7-18) mg/dL Creatinine 0.8 (0.6-1.0) mg/dL Est Cr Clr Drug Dosing 39.61 mL/min Estimated GFR (MDRD) > 60 (>60) Glucose 228 H (74-106) mg/dL Lactic Acid 1.5 (0.4-2.0) mmol/L Calcium 8.9 (8.5-10.1) mg/dL Total Bilirubin 0.6 (0.2-1.0) mg/dL AST 37 (15-37) U/L ALT 42 (12-78) U/L Alkaline Phosphatase 106 (46-116) U/L Troponin I < 0.017 (0.000-0.056) ng/mL C-Reactive Protein (0.0-0.3) mg/dL Total Protein 6.9 (6.4-8.2) g/dL Albumin 2.8 L (3.4-5.0) g/dL Globulin 4.1 H (2.3-3.5) g/dL Albumin/Globulin Ratio 0.7 L (1.2-2.2) Lipase 65 L (73-393) U/L TSH, Ultra Sensitive (0.358-3.740) uIU/mL Urine Color (YELLOW) Urine Appearance (CLEAR) Urine pH (5.0-8.0) Ur Specific Hale (1.008-1.030) Urine Protein (NEGATIVE) mg/dL Urine Glucose (UA) (NEGATIVE) mg/dL Urine Ketones (NEGATIVE) mg/dL Urine Occult Blood (NEGATIVE) Urine Nitrite (NEGATIVE) Urine Bilirubin (NEGATIVE) Urine Urobilinogen (0.2-1.0) EU/dL Ur Leukocyte Esterase (NEGATIVE) Urine RBC (0-5) Urine WBC (0-5) Ur Epithelial Cells Amorphous Sediment Urine Bacteria Urine Mucus 02/04/21 02/04/21 02/04/21 Range/Units 11:14 11:15 11:15 WBC (4.5-11.0) K/uL RBC (3.30-5.50) M/uL Hgb (12.0-15.0) g/dL Hct (36.0-48.0) % MCV (80-98) fL MCH (27-31) pg MCHC (32-36) % Plt Count (150-400) K/uL Neut % (Auto) (36-66) % Lymph % (Auto) (24-44) % Amelia % (Auto) (2-6) % Eos % (Auto) (2-4) % Baso % (Auto) (0-1) % ESR 85 H (0-25) mm/hr Sodium (140-148) mmol/L Potassium (3.6-5.2) mmol/L Chloride (100-108) mmol/L Carbon Dioxide (21-32) mmol/L Anion Gap (5.0-14.0) mmol/L BUN (7-18) mg/dL Creatinine (0.6-1.0) mg/dL Est Cr Clr Drug Dosing mL/min Estimated GFR (MDRD) (>60) Glucose (74-106) mg/dL Lactic Acid (0.4-2.0) mmol/L Calcium (8.5-10.1) mg/dL Total Bilirubin (0.2-1.0) mg/dL AST (15-37) U/L ALT (12-78) U/L Alkaline Phosphatase (46-116) U/L Troponin I (0.000-0.056) ng/mL C-Reactive Protein 2.46 H (0.0-0.3) mg/dL Total Protein (6.4-8.2) g/dL Albumin (3.4-5.0) g/dL Globulin (2.3-3.5) g/dL Albumin/Globulin Ratio (1.2-2.2) Lipase (73-393) U/L TSH, Ultra Sensitive 0.683 (0.358-3.740) uIU/mL Urine Color (YELLOW) Urine Appearance (CLEAR) Urine pH (5.0-8.0) Ur Specific Hale (1.008-1.030) Urine Protein (NEGATIVE) mg/dL Urine Glucose (UA) (NEGATIVE) mg/dL Urine Ketones (NEGATIVE) mg/dL Urine Occult Blood (NEGATIVE) Urine Nitrite (NEGATIVE) Urine Bilirubin (NEGATIVE) Urine Urobilinogen (0.2-1.0) EU/dL Ur Leukocyte Esterase (NEGATIVE) Urine RBC (0-5) Urine WBC (0-5) Ur Epithelial Cells Amorphous Sediment Urine Bacteria Urine Mucus 02/04/21 02/04/21 Range/Units 13:38 15:45 WBC (4.5-11.0) K/uL RBC (3.30-5.50) M/uL Hgb (12.0-15.0) g/dL Hct (36.0-48.0) % MCV (80-98) fL MCH (27-31) pg MCHC (32-36) % Plt Count (150-400) K/uL Neut % (Auto) (36-66) % Lymph % (Auto) (24-44) % Amelia % (Auto) (2-6) % Eos % (Auto) (2-4) % Baso % (Auto) (0-1) % ESR (0-25) mm/hr Sodium (140-148) mmol/L Potassium 3.5 L (3.6-5.2) mmol/L Chloride (100-108) mmol/L Carbon Dioxide (21-32) mmol/L Anion Gap (5.0-14.0) mmol/L BUN (7-18) mg/dL Creatinine (0.6-1.0) mg/dL Est Cr Clr Drug Dosing mL/min Estimated GFR (MDRD) (>60) Glucose (74-106) mg/dL Lactic Acid (0.4-2.0) mmol/L Calcium (8.5-10.1) mg/dL Total Bilirubin (0.2-1.0) mg/dL AST (15-37) U/L ALT (12-78) U/L Alkaline Phosphatase (46-116) U/L Troponin I (0.000-0.056) ng/mL C-Reactive Protein (0.0-0.3) mg/dL Total Protein (6.4-8.2) g/dL Albumin (3.4-5.0) g/dL Globulin (2.3-3.5) g/dL Albumin/Globulin Ratio (1.2-2.2) Lipase (73-393) U/L TSH, Ultra Sensitive (0.358-3.740) uIU/mL Urine Color Yellow (YELLOW) Urine Appearance Clear (CLEAR) Urine pH 6.0 (5.0-8.0) Ur Specific Hale 1.015 (1.008-1.030) Urine Protein Negative (NEGATIVE) mg/dL Urine Glucose (UA) 500 H (NEGATIVE) mg/dL Urine Ketones 15 H (NEGATIVE) mg/dL Urine Occult Blood Trace-lysed H (NEGATIVE) Urine Nitrite Negative (NEGATIVE) Urine Bilirubin Negative (NEGATIVE) Urine Urobilinogen 0.2 (0.2-1.0) EU/dL Ur Leukocyte Esterase Trace H (NEGATIVE) Urine RBC 0-5 (0-5) Urine WBC 0-5 (0-5) Ur Epithelial Cells Few Amorphous Sediment Not seen Urine Bacteria Few Urine Mucus Few Meds: Medications Generic Name Dose Route Start Last Admin Trade Name Freq PRN Reason Stop Dose Admin Dextrose/Sodium Chloride 500 mls @ 999 mls/hr 02/04/21 11:00 02/04/21 11:14 Dextrose 5%-1/2 Ns IV 999 mls/hr .BOLUS HECTOR Administration Sodium Chloride 10 ml 02/04/21 10:47 02/04/21 11:14 Sodium Chloride 0.9% 10 Ml Syringe FLUSH 10 ml ASDIRECTED PRN Administration Keep Vein Open Discontinued Medications Generic Name Dose Route Start Last Admin Trade Name Freq PRN Reason Stop Dose Admin Potassium Chloride 20 meq/ 112 mls @ 56 mls/hr 02/04/21 13:15 02/04/21 13:28 Lidocaine HCl 2 ml/ Sodium IV 02/04/21 15:14 56 mls/hr Chloride ONETIME ONE Administration Potassium Chloride 40 meq 02/04/21 12:38 02/04/21 13:27 Potassium Chloride 20 Meq Tab.Er PO 02/04/21 12:39 40 meq ONETIME ONE Administration Departure - Departure Time of Disposition: 16:16 Disposition: Home, Self-Care 01 Condition: Fair Clinical Impression: Hypokalemia - Discharge Information Instructions: Hypokalemia Referrals: Stanley Hernandez MD [Primary Care Provider] - Forms: ED Department Discharge Additional Instructions: Recommend oral intake of electrolyte rich solution such as Gatorade Pedialyte or Powerade, try the Imodium as needed for loose stools, please follow-up with your primary care in the next 3 to 5 days for an emergency room follow-up at which time you can discuss things as possibly an EGD possibly colonoscopy possibly a consultation with gastroenterology, call or return to the emergency department with worsening of symptoms Sepsis Event Note (ED) - Evaluation Sepsis Screening Result: No Definite Risk - Focused Exam Vital Signs: Vital Signs Temp Pulse Resp BP Pulse Ox 02/04/21 12:23 96 132/74 92 L 02/04/21 11:22 89 115/52 L 92 L 02/04/21 11:17 98 18 118/46 L 96 02/04/21 10:00 97.7 F 107 H 18 141/59 H 95 - My Orders Last 24 Hours: My Active Orders 02/04/21 10:47 Sodium Chloride 0.9% [Saline Flush] 10 ml FLUSH ASDIRECTED PRN Peripheral IV Insertion Adult [OM.PC] Urgent 02/04/21 10:48 Peripheral IV Care [RC] . DIRECTED 02/04/21 11:00 Dextrose 5%-0.45% NaCl [Dextrose 5%-1/2 NS] 500 ml IV .BOLUS - Assessment/Plan Last 24 Hours: My Active Orders 02/04/21 10:47 Sodium Chloride 0.9% [Saline Flush] 10 ml FLUSH ASDIRECTED PRN Peripheral IV Insertion Adult [OM.PC] Urgent 02/04/21 10:48 Peripheral IV Care [RC] . DIRECTED 02/04/21 11:00 Dextrose 5%-0.45% NaCl [Dextrose 5%-1/2 NS] 500 ml IV .BOLUS Plan: Assessment Acuity = acute Site and laterality = hypokalemia Etiology = probably related to diarrhea Manifestations = muscle weakness Location of injury = Home Lab values = CBC unremarkable sed rate elevated at 85 of uncertain significance potassium initially low at 2.6 after correction of 3.5 troponin was negative thyroid within normal limits urinalysis unremarkable lactic acid normal 1.5 lipase also low at 65 Plan I did review lab work with her she is going to try electrolyte rich solution for her oral intake we will try Imodium for the chronic diarrhea I have asked her to follow-up with her primary care for further evaluation which may include EGD colonoscopy and consultation with gastroenterology and further evaluation of the elevated sed rate This note was dictated using [employer] voice recognition software please call with any questions on syntax or grammar.
[2021-02-04] MEDS ORDERED: Dextrose 5%-0.45% NaCl 500 ML IV SCH (11:00)
--- NOTE | 2021-02-04 11:16 | CR ---
Abdomen 1V Upright CLINICAL HISTORY: Abdominal pain FINDINGS: No free air is identified. Small intestinal configuration is nonacute. There is gas and feces throughout the colon. There are surgical clips in the right upper quadrant. Patient has had previous this vertebroplasty at T12 IMPRESSION: Nonacute intestinal gas pattern
[2021-02-04 12:30] VITALS: BP 132/74; PULSE 96
[2021-02-04] MEDS ORDERED: Potassium Chloride 20 MEQ in Premix Bag 1 BAG IV ONE (12:38)
[2021-02-04] MEDS ORDERED: Potassium Chloride 20 MEQ Tab.ER PO ONE (12:38)
[2021-02-04] MEDS ORDERED: Potassium Chloride 20 MEQ, Lidocaine 1% 2 ML in Sodium Chloride 0.9% 100 ML IV ONE (13:15)
== END 2021-02-04 16:35 | disposition home or self-care (01) ==
LOC: JP.ED 09:23
DX: E87.6 Hypokalemia (principal); I48.91 Unspecified atrial fibrillation; I10 Essential (primary) hypertension; Z87.891 Personal history of nicotine dependence; Z88.8 Allergy status to other drugs, medicaments and biological substances; Z88.0 Allergy status to penicillin; Z88.5 Allergy status to narcotic agent; Z88.1 Allergy status to other antibiotic agents; Z79.01 Long term (current) use of anticoagulants; Z79.899 Other long term (current) drug therapy
CPT/HCPCS: 36415; 74018; 80053; 81001; 83605; 83690; 84132; 84443; 84484; 85025; 85651; 86140; 96365; 96366; 99285; A9270; J3480

== ENCOUNTER 2022-04-14 06:31 | Day surgery (SDC) | payer MEDICARE, OTHER ==
[2022-04-14] MEDS ORDERED: Dextrose 5%-Lactated Ringers 1,000 ML IV SCH (07:00)
[2022-04-14] MEDS ORDERED: Propofol 200 MG/20 ML SDV ONE (07:09)
[2022-04-14] MEDS ORDERED: fentaNYL 50 MCG/ML SDV ONE (07:09)
[2022-04-14] MEDS ORDERED: Pantoprazole 40 MG Vial IVPUSH ONE (08:07)
[2022-04-14 09:19] VITALS: BP 129/51; PULSE 81
== END 2022-04-14 09:46 | disposition home or self-care (01) ==
LOC: JP.SDS 06:31
PROVIDERS: ATTEND Surgery
DX: K29.50 Unspecified chronic gastritis without bleeding (principal); Z79.899 Other long term (current) drug therapy; I10 Essential (primary) hypertension; E78.5 Hyperlipidemia, unspecified; I48.91 Unspecified atrial fibrillation; I25.10 Atherosclerotic heart disease of native coronary artery without angina pectoris; Z88.0 Allergy status to penicillin; Z88.8 Allergy status to other drugs, medicaments and biological substances; Z88.3 Allergy status to other anti-infective agents; Z88.6 Allergy status to analgesic agent
CPT/HCPCS: 36415; 85610; 87081; 88305; 88342; C9113; J2704; J3010; J7121

== ENCOUNTER 2024-02-11 11:14 | Inpatient (IN) | payer MEDICARE, OTHER ==
[2024-02-11] MEDS: Sodium Chloride 0.9% 10 ML Syringe FLUSH PRN (11:44)
[2024-02-11] MEDS: Albuterol/Ipratropium 3.0-0.5 MG/3 ML Neb Soln NEB ONE (11:45)
[2024-02-11] MEDS: methylPREDNISolone Sodium Succinate 125 MG/2 ML SDV IVPUSH ONE (11:45)
[2024-02-11 11:59] LABS: BASOPHILS ABSOLUTE AUTO 0.03 K/uL (0.00-0.10); BASOPHILS PERCENT AUTO 0.6 % (0.1-1.3); EOSINOPHILS PERCENT AUTO 0.2 % (0.0-5.4); HEMATOCRIT 34.5 % (34.3-46.0); IMMATURE GRAN PERCENT AUTO 0.4 % (0.0-0.7); LYMPHOCYTES ABSOLUTE AUTO 0.84 K/uL (0.8-3.3); LYMPHOCYTES PERCENT AUTO 15.9 % (11.4-47.7); MEAN CORPUSCULAR HEMOGLOBIN 29.6 pg (31.6-35.5); MEAN CORPUSCULAR HGB CONC 31.9 g/dL (31.6-35.5); MONOCYTES ABSOLUTE AUTO 0.75 K/uL (0.20-0.90); MONOCYTES PERCENT AUTO 14.2 % (3.3-12.6); NEUTROPHILS ABSOLUTE AUTO 3.62 K/uL (1.0-7.6); NEUTROPHILS PERCENT AUTO 68.7 % (40.0-78.1); PLATELET COUNT,PLT 153 K/uL (130-375); RED BLOOD CELL COUNT 3.71 M/uL (3.77-5.24); WHITE BLOOD CELL COUNT,WBC 5.3 K/uL (3.2-11.0)
[2024-02-11 12:00] LABS: BASE EXCESS VENOUS 6.7 mm/L; BICARBONATE,VENOUS 31.6 mmol/L; METHEMOGLOBIN 0.5 %; O2 SATURATION VENOUS 67.1; OXYHEMOGLOBIN 66.1 %; PCO2 VENOUS 48.2 mm/Hg; PH,VENOUS 7.432 (7.350-7.450); PO2 VENOUS 41.3 mm/Hg; TOTAL HEMOGLOBIN 11.3 g/dL (12.0-16.0)
[2024-02-11 12:08] LABS: EOSINOPHILS ABSOLUTE AUTO 0.01 K/uL (0.00-0.40); IMMATURE GRAN ABSOLUTE AUTO 0.02 K/uL (0.00-0.23)
[2024-02-11 12:15] LABS: INR 2.9; PROTHROMBIN TIME 28.6 sec (9.2-10.6)
[2024-02-11 12:26] LABS: CALCIUM 9.3 mg/dL (8.5-10.1); CREATININE 1.2 mg/dL (0.6-1.0); EST CRCL DRUG DOSING (CG) 25.07 mL/min; POTASSIUM,K 4.9 mmol/L (3.6-5.2)
[2024-02-11 12:27] LABS: ANION GAP 11.9 mmol/L (5.0-14.0)
[2024-02-11] MEDS: Furosemide 40 MG/4 ML VIAL IVPUSH ONE (13:38)
[2024-02-11 14:40] LABS: CORONAVIRUS COVID-19 NAA NEGATIVE (NEGATIVE); INFLUENZA A NAA NEGATIVE (NEGATIVE); INFLUENZA B NAA NEGATIVE (NEGATIVE); RESPIRATORY SYNCYTIAL VIR NAA NEGATIVE (NEGATIVE)
[2024-02-11] MEDS: Doxycycline 100 MG in Sodium Chloride 0.9% 100 ML IV ONE (15:03)
[2024-02-11] MEDS: Sodium Chloride 0.9% 500 ML IV ONE (15:03)
[2024-02-11] MEDS ORDERED: Ondansetron 4 MG Tab.DIS PO PRN (19:18)
[2024-02-11] MEDS ORDERED: Magnesium Hydroxide 400 MG/5 ML Susp 30 ML Cup PO PRN (19:18)
[2024-02-11] MEDS ORDERED: Sennosides/Docusate Sodium 50-8.6 MG Tab PO PRN (19:18)
[2024-02-11] MEDS ORDERED: Ondansetron 4 MG/2 ML SDV IV PRN (19:18)
[2024-02-11] MEDS ORDERED: Melatonin 3 MG Tab PO PRN (19:18)
[2024-02-11] MEDS ORDERED: Albuterol 0.083% 2.5 MG/3 ML Neb Soln NEB PRN (19:18)
[2024-02-11] MEDS: Acetaminophen 325 MG Tab PO PRN (19:59)
[2024-02-11] MEDS ORDERED: Diltiazem 120 MG Cap.CD PO SCH (21:00)
[2024-02-11] MEDS ORDERED: Metoprolol Tartrate 25 MG Tab PO SCH (21:00)
[2024-02-11] MEDS: OMEPRAZOLE 20 MG CAP *PT OWN MED PO SCH (21:53)
[2024-02-11] MEDS: DILT 120 MG PO ONE (21:54)
[2024-02-12 05:54] LABS: HEMOGLOBIN 11.4 g/dL (11.2-15.5); MEAN CORPUSCULAR HEMOGLOBIN 29.1 pg (31.6-35.5); MEAN CORPUSCULAR HGB CONC 31.7 g/dL (31.6-35.5); MEAN CORPUSCULAR VOLUME 91.8 fL (81.4-99.0); RED BLOOD CELL COUNT 3.92 M/uL (3.77-5.24); WHITE BLOOD CELL COUNT,WBC 2.2 K/uL (3.2-11.0)
[2024-02-12 06:09] LABS: CREATININE 1.1 mg/dL (0.6-1.0); EST CRCL DRUG DOSING (CG) 27.35 mL/min; MAGNESIUM 1.6 mg/dL (1.8-2.4); POTASSIUM,K 4.3 mmol/L (3.6-5.2)
[2024-02-12 06:12] LABS: ANION GAP 7.3 mmol/L (5.0-14.0)
[2024-02-12] MEDS: Furosemide 40 MG/4 ML VIAL IVPUSH ONE (06:47)
[2024-02-12] MEDS ORDERED: Pantoprazole 40 MG Tab.CR PO SCH (07:30)
[2024-02-12] MEDS: DILTIAZEM 120 MG PO SCH (08:21)
[2024-02-12] MEDS: Losartan 50 MG Tab PO SCH (09:47)
[2024-02-12] MEDS: Hydrochlorothiazide 12.5 MG Cap PO SCH (09:47)
[2024-02-12] MEDS ORDERED: Warfarin 5 MG Tab PO SCH (10:30)
[2024-02-12] MEDS: Fluticasone NASAL Spray 16 GM Bottle NASBOTH SCH (11:27)
[2024-02-12] MEDS ORDERED: Warfarin 2.5 MG Tab PO SCH (13:00)
[2024-02-12] MEDS ORDERED: FLU (Fluad Triv) TS24-25 (65UP)/MF59C/PF 45 MCG/0.5 ML Syringe IM ONE (13:00)
[2024-02-12] MEDS: Warfarin 2.5 MG Tab PO SCH (13:43)
[2024-02-12] MEDS: OMEPRAZOLE 20 MG PO SCH (16:20)
[2024-02-12] MEDS: Magnesium Sulfate/Water Premix 2 GM in Premix Bag 1 BAG IV ONE (17:34)
[2024-02-13 05:42] LABS: PROTHROMBIN TIME 29.4 sec (9.2-10.6)
[2024-02-13 05:47] LABS: A/G RATIO 0.7 (1.2-2.2); ALANINE AMINOTRANSFERASE,ALT 54 U/L (12-78); ALBUMIN 2.7 g/dL (3.4-5.0); ALKALINE PHOSPHATASE 83 U/L (46-116); ASPARTATE AMNIOTRANSFERASE,AST 41 U/L (15-37); BILIRUBIN TOTAL 0.5 mg/dL (0.2-1.0); BLOOD UREA NITROGEN,BUN 46 mg/dL (7-18); C-REACTIVE PROTEIN 1.73 mg/dL (<0.50); CALCIUM 8.8 mg/dL (8.5-10.1); CARBON DIOXIDE,CO2 39 mmol/L (21-32); CHLORIDE,CL 96 mmol/L (100-108); CREATININE 1.1 mg/dL (0.6-1.0); EST CRCL DRUG DOSING (CG) 27.35 mL/min; ESTIMATED GFR 50 mL/min (>60); GLUCOSE RANDOM 99 mg/dL (74-106); MAGNESIUM 2.1 mg/dL (1.8-2.4); POTASSIUM,K 3.5 mmol/L (3.6-5.2); PROTEIN TOTAL,TP 6.6 g/dL (6.4-8.2); SODIUM,NA 136 mmol/L (140-148)
[2024-02-13 06:03] LABS: ANION GAP 4.5 mmol/L (5.0-14.0)
[2024-02-13] MEDS: Furosemide 20 MG/2 ML VIAL IVPUSH SCH (08:31)
[2024-02-13] MEDS: Potassium Chloride 20 MEQ Tab.ER PO SCH (13:21)
[2024-02-13] MEDS ORDERED: FLU (Fluad Triv) TS24-25 (65UP)/MF59C/PF 45 MCG/0.5 ML Syringe IM ONE (14:00)
[2024-02-14 05:23] LABS: HEMATOCRIT 35.6 % (34.3-46.0); HEMOGLOBIN 10.8 g/dL (11.2-15.5); MEAN CORPUSCULAR HGB CONC 30.3 g/dL (31.6-35.5); MEAN CORPUSCULAR VOLUME 95.7 fL (81.4-99.0); RED BLOOD CELL COUNT 3.72 M/uL (3.77-5.24); WHITE BLOOD CELL COUNT,WBC 5.5 K/uL (3.2-11.0)
[2024-02-14 05:38] LABS: INR 2.5; PROTHROMBIN TIME 24.3 sec (9.2-10.6)
[2024-02-14 05:53] LABS: A/G RATIO 0.7 (1.2-2.2); ALANINE AMINOTRANSFERASE,ALT 57 U/L (12-78); ALBUMIN 2.9 g/dL (3.4-5.0); ALKALINE PHOSPHATASE 88 U/L (46-116); ASPARTATE AMNIOTRANSFERASE,AST 41 U/L (15-37); BILIRUBIN TOTAL 0.5 mg/dL (0.2-1.0); BLOOD UREA NITROGEN,BUN 34 mg/dL (7-18); C-REACTIVE PROTEIN 1.25 mg/dL (<0.50); CALCIUM 9.1 mg/dL (8.5-10.1); CARBON DIOXIDE,CO2 41 mmol/L (21-32); CHLORIDE,CL 93 mmol/L (100-108); CREATININE 0.8 mg/dL (0.6-1.0); ESTIMATED GFR 73 mL/min (>60); GLUCOSE RANDOM 93 mg/dL (74-106); POTASSIUM,K 3.8 mmol/L (3.6-5.2); PROTEIN TOTAL,TP 7.1 g/dL (6.4-8.2); SODIUM,NA 135 mmol/L (140-148)
[2024-02-14 05:54] LABS: ANION GAP 4.8 mmol/L (5.0-14.0)
[2024-02-14] MEDS: Albuterol/Ipratropium 3.0-0.5 MG/3 ML Neb Soln NEB PRN (10:38)
[2024-02-14] MEDS: FLU (Fluad Triv) TS24-25 (65UP)/MF59C/PF 45 MCG/0.5 ML Syringe IM ONE (10:41)
[2024-02-15 05:12] LABS: HEMATOCRIT 35.5 % (34.3-46.0); HEMOGLOBIN 10.9 g/dL (11.2-15.5); MEAN CORPUSCULAR HEMOGLOBIN 28.8 pg (31.6-35.5); MEAN CORPUSCULAR HGB CONC 30.7 g/dL (31.6-35.5); MEAN CORPUSCULAR VOLUME 93.9 fL (81.4-99.0); RED BLOOD CELL COUNT 3.78 M/uL (3.77-5.24); WHITE BLOOD CELL COUNT,WBC 5.5 K/uL (3.2-11.0)
[2024-02-15 05:32] LABS: INR 1.8; PROTHROMBIN TIME 17.8 sec (9.2-10.6)
[2024-02-15 05:36] LABS: A/G RATIO 0.7 (1.2-2.2); ALANINE AMINOTRANSFERASE,ALT 49 U/L (12-78); ALBUMIN 2.7 g/dL (3.4-5.0); ALKALINE PHOSPHATASE 82 U/L (46-116); ASPARTATE AMNIOTRANSFERASE,AST 34 U/L (15-37); BILIRUBIN TOTAL 0.9 mg/dL (0.2-1.0); BLOOD UREA NITROGEN,BUN 22 mg/dL (7-18); CALCIUM 9.1 mg/dL (8.5-10.1); CARBON DIOXIDE,CO2 42 mmol/L (21-32); CHLORIDE,CL 93 mmol/L (100-108); CREATININE 0.7 mg/dL (0.6-1.0); EST CRCL DRUG DOSING (CG) 42.97 mL/min; ESTIMATED GFR 85 mL/min (>60); GLUCOSE RANDOM 91 mg/dL (74-106); POTASSIUM,K 3.6 mmol/L (3.6-5.2); PROTEIN TOTAL,TP 6.8 g/dL (6.4-8.2); SODIUM,NA 135 mmol/L (140-148)
[2024-02-15 05:38] LABS: ANION GAP 3.6 mmol/L (5.0-14.0)
[2024-02-15 11:32] VITALS: PULSE 87
[2024-02-15 11:36] VITALS: BP 128/47
[2024-02-15] MEDS ORDERED: Warfarin 2.5 MG Tab PO SCH (13:00)
== END 2024-02-15 12:40 | disposition home or self-care (01) | DRG 291 ==
LOC: JP.ED 11:14 → JP.ICU 17:25
PROVIDERS: ADMIT Internal Medicine; ATTEND Hospitalist
DX: I11.0 Hypertensive heart disease with heart failure (principal); J96.01 Acute respiratory failure with hypoxia; I48.20 Chronic atrial fibrillation, unspecified; J90 Pleural effusion, not elsewhere classified; I48.91 Unspecified atrial fibrillation; J44.1 Chronic obstructive pulmonary disease with (acute) exacerbation; Z66 Do not resuscitate; I50.9 Heart failure, unspecified; G89.29 Other chronic pain; M54.9 Dorsalgia, unspecified; Z88.1 Allergy status to other antibiotic agents; H54.7 Unspecified visual loss; E78.00 Pure hypercholesterolemia, unspecified; M19.90 Unspecified osteoarthritis, unspecified site; G43.909 Migraine, unspecified, not intractable, without status migrainosus; E86.0 Dehydration; F32.A Depression, unspecified; M32.9 Systemic lupus erythematosus, unspecified; E87.6 Hypokalemia; Z88.6 Allergy status to analgesic agent; Z88.0 Allergy status to penicillin; Z88.5 Allergy status to narcotic agent; Z88.8 Allergy status to other drugs, medicaments and biological substances; Z79.01 Long term (current) use of anticoagulants; Z90.49 Acquired absence of other specified parts of digestive tract; Z98.49 Cataract extraction status, unspecified eye; Z79.899 Other long term (current) drug therapy; Z98.890 Other specified postprocedural states; Z87.891 Personal history of nicotine dependence
CPT/HCPCS: 0241U; 36415; 71045; 71046; 80048; 80053; 82803; 83605; 83735; 83880; 84145; 85025; 85027; 85610; 86140; 87040; 93005; 93010; 93306; 94640; 96365; 96375; 97161; 99285; A9270-GY; J1940; J2919; J3475; J3490; J7040; J7620